=== PATIENT | male | born 1990 ===

== ENCOUNTER 2020-06-10 13:38 | Emergency (ER) | payer OTHER, SELFPAY ==
[2020-06-10 13:57] VITALS: BP 112/73; PULSE 74; RESP 16; TEMP 37.3; O2SAT 98; BMI 19.5
--- NOTE | 2020-06-10 14:53 | ED.PSYCH ---
HPI - Psych General Chief Complaint: Psychiatric Symptoms Stated Complaint: SI Time Seen by Provider: 06/10/20 14:11 Source: patient and family Mode of arrival: ambulatory Limitations: no limitations History of Present Illness HPI Narrative: 29 yo male with history of anxiety/depression, hx former alcohol abuse now sober x2 years who presents with severe depression and suicidal thoughts. His girlfriend of 6 years 6 weeks ago. [facility] found out [facility] that she had been cheating on him for the last 2 years. He started making suicidal thoughts to his family with severe sadness and depression. He has been angry at home, he punched a hole in the wall the other day. He lost 20 lbs in the last 6 weeks. He reports vague SI but has no plan. He admits to needing help. He has been on meds before but has been off of them for years. He has significant support at home. MD complaint: suicidal ideation and feels depressed Onset (ago): week(s) (6) Duration: constant History of same: Yes Relieving factors: none Exacerbating factors: none Context: significant life stressor Associated psychiatric symptoms: depression and suicidal ideation Associated symptoms: denies other symptoms Treatments prior to arrival: none If self harm: admits thoughts of self harm Related Data Allergies Allergy/AdvReac Type Severity Reaction Status Date / Time No Known Allergies Allergy Unverified 01/13/20 18:15 [No Known Allergies*] Review of Systems Review of Systems: Constitutional: No Fever, No Chills, +weight loss Cardiovascular: No Chest Pain, No SOB, No Orthopnea, No Edema Respiratory: No Cough, No Sputum, No Wheezing, No dyspnea Gastrointestinal: No Nausea, No Vomiting, No Diarrhea, No abdominal Pain Genitourinary: No Dysuria, No Urinary Frequency, No Hematuria Musculoskeletal: No joint pain, No Myalgias Skin: No Skin Lesions, No rash Neuro: No Weakness, No Numbness, No Dizziness, No Headache Psych: + Anxiety/Panic, + Depression, +anger PMFSH Social History Social History Advance Directives: No Advance Directives Information Provided: Yes Physical Exam Vital Signs: Vital Signs: Last Vital Signs Temp 99 F 06/10/20 18:00 Pulse 71 06/10/20 18:00 Resp 14 06/10/20 18:00 BP 122/78 06/10/20 18:00 Pulse Ox 100 06/10/20 18:00 Body Mass Index 19.5 Appearance: Alert. Oriented X3. No acute distress. Eyes: Pupils equal, round and reactive to light. ENT: Pharynx normal. Neck: Normal inspection. Neck supple. CVS: Normal heart rate and rhythm. Pulses normal. Respiratory: No respiratory distress. Breath sounds normal. Abdomen: Soft and nontender. +BS x4 Skin: Skin warm and dry. Normal skin color. Normal skin turgor. No rashes. Extremities: No lower extremity edema. Neuro: Oriented X 3. No motor deficit. No sensory deficit. Psych: flat affect, +SI, no delusions, no hallucinations Course Course Course Narrative: 29 y/o male presenting with vague SI - severely depressed with significant life stressors. He has a very supportive family who have been by his side 18/11, taking time off of work and supporting him. They brought him here after he texted them today for help. Lab workup is unremarkable. N to see. He would benefit from more intensive therapy and starting of medication. He has been having therapy once a week the last 5 weeks without improvement. Reevaluation(s) Reevaluation #1: N evaluated the patient and spoke with family. They are currently recommending 3-5 respite stay with med evaluation and group therapy. Patient and family are on board. [facility] in [facility]. COVID pending. Reevaluation #2: COVID is negative. Bed is available but case has not been fully presented to facility at [facility]. Plan will be for discharge home with his parents and present to Respite once fully accepted - [facility] or [facility] tomorrow. Stable for d/c with his father. MDM - Psych Lab Data Result diagrams: 06/10/20 15:12 06/10/20 15:12 Labs: Lab Results 06/10/20 06/10/20 06/10/20 Range/Units 15:12 15:12 15:12 WBC 6.1 (4.8-10.8) X10*3/uL RBC 5.02 (4.60-5.80) X10*6/uL Hgb 15.2 (14.0-18.0) g/dl Hct 43.9 (42-52) % MCV 87.5 (80-98) fL MCH 30.3 (27.0-33.0) pg MCHC 34.6 (31.0-36.0) g/dl RDW 12.0 (11.0-16.0) % Plt Count 196 (160-400) X10*3/uL MPV 9.7 (9.4-12.4) fL Immature Gran % (Auto) 0.2 (0.0-0.4) % Neut % (Auto) 55.0 (45-73) % Lymph % (Auto) 34.5 (20-40) % [place] % (Auto) 9.3 (2-11) % Eos % (Auto) 0.5 (0-4) % Baso % (Auto) 0.5 (0-2) % Lymph # (Auto) 2.1 (1.2-4.9) X10*3/uL [place] # (Auto) 0.6 (0.1-1.2) X10*3/uL Eos # (Auto) 0.0 (0.0-0.4) X10*3/uL Baso # (Auto) 0.0 (0.0-0.2) X10*3/uL Abs Immat Gran (auto) 0.01 (0.00-0.03) X10*3/uL Absolute Neuts (auto) 3.3 (2.0-8.3) X10*3/uL Absolute Nucleated RBC 0.000 (0.0-0.012) X10*3/uL Nucleated RBC % (auto) 0.0 (0.0-0.2) /100WBC Sodium 139 (135-145) mmol/L Potassium 4.5 (3.3-5.1) mmol/L Chloride 104 (96-108) mmol/L Carbon Dioxide 29 (22-29) mmol/L Anion Gap 11 L (12-20) BUN 10 (9-16) mg/dL Creatinine 0.77 (0.5-1.4) mg/dL Estim Creat Clear Calc 131.9 Estimated GFR > 60 Random Glucose 100 (60-115) mg/dL Calcium 9.5 (8.4-10.2) mg/dL Total Bilirubin 3.0 H (0.0-1.0) mg/dL Direct Bilirubin 0.5 (0.0-0.5) mg/dL AST 11 (5-37) U/L ALT 10 (0-40) U/L Alkaline Phosphatase 52 (39-117) U/L Total Protein 6.9 (6.5-8.0) g/dL Albumin 4.5 (3.5-5.0) g/dL Urine Color Urine Appearance Urine pH (5.0-8.0) Ur Specific [place] (1.005-1.025) Urine Protein (NEG-TRACE) MG/DL Urine Glucose (UA) (NEG) MG/DL Urine Ketones (NEG) MG/DL Urine Blood (NEG) Urine Nitrite (NEG) Ur Leukocyte Esterase (NEG) Urine Opiates Screen (Not Detect) Ur Barbiturates Screen (Not Detect) Ur Phencyclidine Scrn (Not Detect) Ur Amphetamines Screen (Not Detect) U Benzodiazepines Scrn (Not Detect) Urine Cocaine Screen (Not Detect) U Marijuana (THC) Screen (Not Detect) Ethyl Alcohol < 10 mg/dL COVID-19 (ROSE) (Negative) COVID-19 Clin Com 06/10/20 06/10/20 06/10/20 Range/Units 15:12 15:12 19:30 WBC (4.8-10.8) X10*3/uL RBC (4.60-5.80) X10*6/uL Hgb (14.0-18.0) g/dl Hct (42-52) % MCV (80-98) fL MCH (27.0-33.0) pg MCHC (31.0-36.0) g/dl RDW (11.0-16.0) % Plt Count (160-400) X10*3/uL MPV (9.4-12.4) fL Immature Gran % (Auto) (0.0-0.4) % Neut % (Auto) (45-73) % Lymph % (Auto) (20-40) % [place] % (Auto) (2-11) % Eos % (Auto) (0-4) % Baso % (Auto) (0-2) % Lymph # (Auto) (1.2-4.9) X10*3/uL [place] # (Auto) (0.1-1.2) X10*3/uL Eos # (Auto) (0.0-0.4) X10*3/uL Baso # (Auto) (0.0-0.2) X10*3/uL Abs Immat Gran (auto) (0.00-0.03) X10*3/uL Absolute Neuts (auto) (2.0-8.3) X10*3/uL Absolute Nucleated RBC (0.0-0.012) X10*3/uL Nucleated RBC % (auto) (0.0-0.2) /100WBC Sodium (135-145) mmol/L Potassium (3.3-5.1) mmol/L Chloride (96-108) mmol/L Carbon Dioxide (22-29) mmol/L Anion Gap (12-20) BUN (9-16) mg/dL Creatinine (0.5-1.4) mg/dL Estim Creat Clear Calc Estimated GFR Random Glucose (60-115) mg/dL Calcium (8.4-10.2) mg/dL Total Bilirubin (0.0-1.0) mg/dL Direct Bilirubin (0.0-0.5) mg/dL AST (5-37) U/L ALT (0-40) U/L Alkaline Phosphatase (39-117) U/L Total Protein (6.5-8.0) g/dL Albumin (3.5-5.0) g/dL Urine Color YELLOW Urine Appearance CLEAR Urine pH 8.0 (5.0-8.0) Ur Specific [place] 1.015 (1.005-1.025) Urine Protein NEG (NEG-TRACE) MG/DL Urine Glucose (UA) NEG (NEG) MG/DL Urine Ketones NEG (NEG) MG/DL Urine Blood NEG (NEG) Urine Nitrite NEG (NEG) Ur Leukocyte Esterase NEG (NEG) Urine Opiates Screen Not Detected (Not Detect) Ur Barbiturates Screen Not Detected (Not Detect) Ur Phencyclidine Scrn Not Detected (Not Detect) Ur Amphetamines Screen Not Detected (Not Detect) U Benzodiazepines Scrn Not Detected (Not Detect) Urine Cocaine Screen Not Detected (Not Detect) U Marijuana (THC) Screen POSITIVE H (Not Detect) Ethyl Alcohol mg/dL COVID-19 (ROSE) Negative (Negative) COVID-19 Clin Com See Note Discharge Plan Discharge Clinical Impression: Depression Patient Disposition: Xfer to Respite Facility Instructions: Depression (ED), Suicide Prevention (ED) Additional Instructions: Present to Respite Facility upon discharge for treatment. Stay with a responsible adult until you have been formally accepted at the Respite facility. Contact N or come back to the ER if you are feeling suicidal and out of control.
[2020-06-10] MEDS: LORazepam 1 MG TABLET 2 MG PO (15:07)
[2020-06-10 15:19] LABS: Basophils Percent Auto 0.5 % (0-2); Eosinophils Percent Auto 0.5 % (0-4); Hematocrit 43.9 % (42-52); Hemoglobin 15.2 g/dl (14.0-18.0); Imm Gran Abs Auto 0.01 X10*3/uL (0.00-0.03); Imm Gran Pct Auto 0.2 % (0.0-0.4); Lymphocytes Absolute Auto 2.1 X10*3/uL (1.2-4.9); Lymphocytes Percent Auto 34.5 % (20-40); MANUAL DIFF FLAG NO; Mean Corpuscular HGB Conc 34.6 g/dl (31.0-36.0); Mean Corpuscular Hemoglobin 30.3 pg (27.0-33.0); Mean Corpuscular Volume 87.5 fL (80-98); Mean Platelet Volume 9.7 fL (9.4-12.4); Monocytes Absolute Auto 0.6 X10*3/uL (0.1-1.2); Monocytes Percent Auto 9.3 % (2-11); Neutrophils Absolute Auto 3.3 X10*3/uL (2.0-8.3); Platelet Count 196 X10*3/uL (160-400); Red Blood Count 5.02 X10*6/uL (4.60-5.80); White Blood Count 6.1 X10*3/uL (4.8-10.8)
[2020-06-10 15:24] LABS: Glucose Urine UA NEG (NEG); Leukocyte Esterase Urine NEG (NEG); Nitrite Urine NEG (NEG); Specific Gravity - Urine 1.015 (1.005-1.025); Urine Blood NEG (NEG); Urine Ketones NEG (NEG); Urine Protein NEG (NEG-TRACE)
[2020-06-10 15:30] LABS: Appearance Urine CLEAR; Color Urine YELLOW
[2020-06-10 15:34] LABS: Ethanol < 10 mg/dL
[2020-06-10 15:37] LABS: Amphetamine Screen Urine Not Detected (Not Detect); Barbiturates, Urine Not Detected (Not Detect); Benzodiazepines Screen Urine Not Detected (Not Detect); Cannabinoid Screen Urine POSITIVE (Not Detect); Cocaine Screen Urine Not Detected (Not Detect); Opiate Screen Urine Not Detected (Not Detect); Phencyclidine Screen Urine Not Detected (Not Detect)
[2020-06-10 15:39] LABS: Alanine Aminotransferase 10 U/L (0-40); Albumin Level 4.5 g/dL (3.5-5.0); Alkaline Phosphatase 52 U/L (39-117); Anion Gap 11 (12-20); Aspartate Amino Transferase 11 U/L (5-37); Bilirubin Direct 0.5 mg/dL (0.0-0.5); Blood Urea Nitrogen 10 mg/dL (9-16); Calcium 9.5 mg/dL (8.4-10.2); Carbon Dioxide 29 mmol/L (22-29); Chloride 104 mmol/L (96-108); Creatinine Clr Calc Pharmacy 131.9; Estimated Glomerular Filt Rate > 60; Glucose Random 100 mg/dL (60-115); Potassium 4.5 mmol/L (3.3-5.1); Sodium 139 mmol/L (135-145); Total Protein 6.9 g/dL (6.5-8.0)
--- NOTE | 2020-06-10 16:20 | PC.NURSE ---
pt has been pacing in [facility]. HE was unwilling to state if he was having active suicidal thoughts or had a plan. He sttaes I don't want to say too much. Pt became agitated and wanting o leave, was seen by provider and medicated for SX. HE continues to pace and say he wants to leave. Awaiting further eval.
--- NOTE | 2020-06-10 17:31 | PC.NURSE ---
called N to confirm fax, they state they have gotten the fax but cannot determine when the pt will be seen. Will continue to monitor and update pt.
[2020-06-10 18:00] VITALS: BP 122/78; PULSE 71; RESP 14; TEMP 37.2; O2SAT 100
[2020-06-10 19:53] LABS: COVID-19 Test Negative (Negative)
== END 2020-06-10 20:27 ==
PROVIDERS: Physician Assistant; Emergency Provider Emergency Medicine Emergency Medical Services; PCP Internal Medicine
DX: F32.9 Major depressive disorder, single episode, unspecified (principal); R45.851 Suicidal ideations; Z20.822 Contact with and (suspected) exposure to COVID-19; Z72.89 Other problems related to lifestyle; Z63.4 Disappearance and death of family member
CPT/HCPCS: 36415; 80048; 80076; 80307; 80320; 81003; 85025; 87635; 99284

== ENCOUNTER 2020-07-03 10:30 | Outpatient (RCR) | payer OTHER, SELFPAY ==
[2020-06-20 13:14] VITALS: BMI 20.8
--- NOTE | 2020-06-20 14:21 | PC.NURSE ---
Patient is a 29 year old male who was referred by [facility] inpatient mental health unit where patient was admitted d/t increased depression with passive SI related to grief over his fiance' who patient reports of a suspected overdose on May 04, 2020. Patient stated he found out at the that his fiance' cheated on him with a drug dealer and was very upset after he found this out. Patient presents with depressed mood and affect. Denied SI, HI at present. Asked who he could contact if did not feel safe and he stated his sponsor or a family member. Patient stated he has a lot of family support. Patient gave verbal permission to email him a copy of his safety plan. Patient reports hx of substance use and that ETOH was his substance of choice. Patient reported heavy eTOH use drinking liters of vodka until he blacked out. Stated he has been sober for 2 years and has a sponsor. Patient has not been attending substance use meetings as he stated he does not like the online platform however stated he probably should start going again. He reports daily use of marijuana smoking a bowl daily to help with his anxiety and sleep. Patient agrees not to use while in the program. Patient medications reconciled with patient who reviewed [facility] D/C medication list with this engineering writer and per patient's pharmacy. Patient reports taking medications as prescribed. Patient also reports bruising on his hands d/t punching a hole in the wall while hospitalized at [facility]. Stated no swelling and is able to move all his fingers.
--- NOTE | 2020-06-20 18:39 | HO.PS.ADMBH ---
HPI Chief Complaint: depression Sources of Information: patient interviewed and chart reviewed HPI Narrative: 29 yo male, referred after an admission to [facility]. Pt reports that his jessica of a drug overdose on 05/04/20. Reports he learned at her that she had been in a relationship with her dealer. Pt experienced a 25lb wt loss, nightmares, dry heaves and pursued in pt care as sx were overwhelming. Reports two years of sobriety-states he worked hard, saved money for an apartment with jessica, purchased an [employer] ring, went to /[facility] and feels crushed by what has occurred. Reports no SI, stating I have no real will to live, but I don't wish on myself and I know the pain it causes those who love you. I will move forward with my life. Reports sleep is OK as it appetite. This week is also an anniversary of a friend dying of OD (06/21) and he has been giving this loss more thought. Reports extensive research on medications and currently does not want to complete trials. Discussed some of the newer agents available to him and he will accept information. Medical Evaluation Reviewed: No (no evaluation to review) [facility], LAT[facility] Medical History (Updated 06/20/20 @ 18:58 by Shannon Mcdowell, BROADCAST DESIGNER) Alcohol use disorder, moderate, in sustained remission, dependence No known health problems Recurrent major depression-severe Family History: depression, anxiety, addiction Social History: living with parents, currently no working Substance History: Sober for 2 years Trauma History: yes Diagnostics Vital Signs (24Hr): Body Mass Index 20.8 Meds/Allergies Meds Narrative: Klonopin 0.5 mg prn Clonidine 0.1 mg HS Allergies Allergies Allergy/AdvReac Type Severity Reaction Status Date / Time No Known Allergies Allergy Verified 06/20/20 13:13 [No Known Allergies*] Mental Status Exam Mental Status Exam Patient Appearance: Appropriate Patient Orientation: Person, Place, Time and Situation Level of Consciousness: Alert Patient Behavior: Appropriate, Talkative, Cooperative and Fatigued Mood Description: Depressed Affect Description: Flat Patient Cognition Impaired: No Ability to Follow Directions: Good Speech Pattern: Clear and Spontaneous Speech Memory Description: Intact Hallucinations: None Delusions: Not Present Thought Process: Intact, Rumination and Linear Thought Content: positive for Intact and positive for Circumstantial Depressive Symptoms: Hopelessness, Feelings of Guilt, Unhappiness, Thoughts of /Suicide (passive, without plan or intent- no will to live ) and Loss of Energy Judgement: Good Assessment & Plan Assessment & Plan (1) Acute stress reaction: Status: Acute Code(s): F43.0 - Acute stress reaction Assessment and Plan: -Continue current regime. -Wanting to process loss, however, without details- will ask group leaders for assistance. (2) Recurrent major depression-severe: Status: Acute Code(s): F33.2 - Major depressive disorder, recurrent severe without psychotic features Assessment and Plan: -Discussed medication options-pt is open to looking at information. (3) Alcohol use disorder, moderate, in sustained remission, dependence: Status: Acute Code(s): F10.21 - Alcohol dependence, in remission Certification I certify that partial hospital treatment is medically necessary due to the symptoms and problems resulting from the patient's mental illness and the failure to treat the patient at the partial hospital level of care would likely result in the patient requiring inpatient psychiatric care which could not be prevented at a less intensive level of care. Telehealth Telehealth Location of provider rendering services: practice address Location of patient: address on file Patient Identification confirmed using: Name, : Yes Telehealth method: video Patient verbally consented to treatment: Yes Patient verbally consented to billing insurance company: Yes Patient informed of any privacy concerns related to visit: Yes Time spent with patient (mins): 30
--- NOTE | 2020-06-22 08:31 | PC.NURSE ---
I called and LM for pt. I asked him to pls call re: aftercare and schedule.
--- NOTE | 2020-06-23 15:10 | PC.NURSE ---
I called and spoke to pt this morning about aftercare. He agreed to call med providers peter. I sent him a list via email, including the following providers: 1) Mirlande Padilla NP . [place], [place]. (Licensed to see clients in [facility], and she's close to [employer]) 2) Randell Zambrano MD . [place], [place] 3) Dionicio Whelan NP. . [place], [place] 4) Sejal Delgado APRN. . [place], [place] 5) [address] [facility]. . [place], [place] 6) Cierra Begum APRN [place], [place] 7) Ame Knutson NP (Nita) [place], [place] 8) Jesus Waters NP [place], [place] 9) Becca Najera NP [place], [place] 10) Ty Brooks NP x [place], [place] I also sent him an email with a link to the Men's [employer] online support group (for men who have lost someone to a drug OD, as he said he might be interested.
--- NOTE | 2020-06-28 16:43 | HO.PHPPROGNO ---
Subjective Subjective Date of Service: 07/17/20 Reason For Visit: depression Interim History: Manoj reports he finds PHP helpful in that he learns from peers. He reports continuing to have nightmares at night. He reports less symptoms of depression. He denies SI/HI. He is taking medications as prescribed and denies any side effects. We discussed starting antidepressant or considering prazosin for nightmares but pt declined. Medication Compliance: Yes Side effects from medications: No Mental Status Exam Mental Status Exam Patient Appearance: Appropriate Patient Orientation: Person, Place, Time and Situation Level of Consciousness: Alert Patient Behavior: Appropriate, Talkative, Cooperative and Fatigued Mood Description: Depressed Affect Description: Flat Patient Cognition Impaired: No Ability to Follow Directions: Good Speech Pattern: Clear and Spontaneous Speech Memory Description: Intact Diagnostics Vital Signs (24Hr): Body Mass Index 20.8 Assessment & Plan Assessment & Plan (1) Acute stress reaction: Status: Acute Code(s): F43.0 - Acute stress reaction Assessment and Plan: -Continue current regime. -Wanting to process loss, however, without details- will ask group leaders for assistance. (2) Recurrent major depression-severe: Status: Acute Code(s): F33.2 - Major depressive disorder, recurrent severe without psychotic features Assessment and Plan: -Discussed medication options-pt is open to looking at information. (3) Alcohol use disorder, moderate, in sustained remission, dependence: Status: Acute Code(s): F10.21 - Alcohol dependence, in remission Certification I certify that partial hospital treatment is medically necessary due to the symptoms and problems resulting from the patient's mental illness and the failure to treat the patient at the partial hospital level of care would likely result in the patient requiring inpatient psychiatric care which could not be prevented at a less intensive level of care. Greater than 50% of the session was spent on counseling and/or coordination of care Discharge Plan Discharge Attending provider: Moreno Lantigua Medications: No Action clonidine HCl 0.1 mg Tablet 0.1 mg PO BID PRN (Reason: Anxiety) RF: 0 clonazepam [Klonopin] 0.5 mg Tablet 0.5 mg PO BID PRN (Reason: Anxiety) RF: 0 Telehealth Telehealth Location of provider rendering services: practice address Location of patient: address on file Patient Identification confirmed using: Name, : Yes Telehealth method: video Patient verbally consented to treatment: Yes Patient verbally consented to billing insurance company: Yes Patient informed of any privacy concerns related to visit: Yes Time spent with patient (mins): 15
--- NOTE | 2020-06-29 14:53 | PC.NURSE ---
I attempted to call pt after he didn't sow up for the last 2 groups. He (or someone) picked up and immediately hung up before I said anything. After talking with staff, I was informed that he had left a massage on the general voicemail box.
--- NOTE | 2020-06-30 14:01 | PC.NURSE ---
I called and spoke to pt after he displayed hopelessness in several groups today. He said he feels safe now. He reported urges to drink alcohol but sounded confident that he wont. He spoke about knowing that the steps he is taking now will even something to him in the future even if he doesn't feel like he cares now. He said he will contact crisis is he becomes suicidal, and said he'd call a friend or sponsor if he feels close to alcohol use.
--- NOTE | 2020-07-04 10:55 | PC.NURSE ---
Pt left during first group, and I called him and spoke with him. He said he is safe, and that he needs a break from talking . When I asked, he said he doesn't plan to drink alcohol, and is not having suicidal thoughts or plans.
--- NOTE | 2020-07-05 10:19 | PC.NURSE ---
Clinician reported pt was struggling in group. Pt called to talk about what was going on. When asked if he had a plan to hurt himself he reported I don't want to say anything to take away my freedom. Discussed options of seeing crisis and recommended a crisis assessment from EYELET MACHINE OPERATOR at [facility] in [place]. He agreed. Called his father (emergency contact) to ask him to take pt to [facility]. Father agreed. Called pt back to inform him that his father was on his way home to take him to a crisis assessment. Pt reported he took 1 klonopine and he is aware his father is coming to pick him up. Pt agreed to be put on alert with EYELET MACHINE OPERATOR crisis. Called EYELET MACHINE OPERATOR crisis to put pt on alert.
--- NOTE | 2020-07-05 11:45 | PC.NURSE ---
TW was asked by hull outfit supervisor to reassess a crisis situation as she had received a call from pt's father that pt no longer wanted to go to be evaluated and that pt ws denying any SI. TW asked pt if he ws safe pt said yes. Pt reported that he had no intention of hurting himsef. It reported that his parents were with him and that he was not alone. Pt wanted to rejoin groups. TW provided the link to rejoin. Pt asked what time to log in, pt was told now as group had started. Pt agreed. Pt reported that he would reach out to staff should he no longer feel safe.
--- NOTE | 2020-07-05 12:09 | PC.NURSE ---
Clinician reported pt did not attend group as agreed upon. Called pt and left a message. Called pt's father (emergency contact) to discuss concerns. Pt reported to father that he tried to log in but no one let him in. Asked if pt attempted to call anyone. He said no. Discussed the requirement of a crisis assessment due to safety concerns, not following through with returning to treatment, and not reaching out if there was an issue. Pt left the room. Informed pt's father that pt could obtain a mobile assessment by calling [facility] crisis (provided the number), by going to [facility] to see HOME CARE LIAISON crisis or we may have to section 12 him due to safety concerns. Pt's mother (in the background) reported that she made an appointment with an HAULING CONTRACTOR at his PCP office for 1615 today. However, discussed safety concerns regarding pts behaviors and the need for a crisis assessment as well. Father entered the same room as pt and reiterated the need for a crisis assessment. Pt agreed to [facility] mobile crisis. Father and pt were going to call upon hanging up.
--- NOTE | 2020-07-06 08:10 | PC.NURSE ---
Tw called pt to check the status of yesterdays events. Pt did not answer phone. Message was left looking for an update on the crisis evaluation, as pt's clinician is out today and no update was provided to the Engineering Vice President. Pt was asked to return the call. Engineering Vice President's number also provided.
--- NOTE | 2020-07-07 16:06 | PC.NURSE ---
I called and spoke to Subhash Munson, pt's therapist, ([phone]) and let him know that pt has discharged from the program, and is struggling. I gave a clinical update and informed him about referral for pt to [facility] and to Randell Zambrano MD for medication management.
== END 2020-07-03 23:55 | disposition left against medical advice (07) ==
LOC: HO.PHPA 10:30
PROVIDERS: Referring Provider Internal Medicine; Visit Provider Psychiatry & Neurology Psychiatry
DX: F33.2 Major depressive disorder, recurrent severe without psychotic features (principal); F43.0 Acute stress reaction; F10.21 Alcohol dependence, in remission
CPT/HCPCS: 90791; 90853

== ENCOUNTER 2023-08-08 12:51 | Inpatient (IN) | payer OTHER, SELFPAY ==
[2023-08-08 12:55] VITALS: BP 125/76; PULSE 75; RESP 18; TEMP 37.1; O2SAT 98; BMI 26.1
--- NOTE | 2023-08-08 12:55 | ED_ITS ---
HPI - Psych General Chief Complaint: Psychiatric Symptoms Stated Complaint: Crisis Time Seen by Provider: 08/08/23 13:02 Source: patient Mode of arrival: ambulatory Limitations: no limitations History of Present Illness HPI Narrative: Patient is a 32-year-old male who presents to the emergency department reporting SI without specific plan, severe depression and anxiety, states his psychiatrist told him there will be beds opening up this afternoon here , states recent hospitalization in [facility] after suicide attempt in June 21. Denies drug or alcohol usage, denies physical complaints at this time Related Data Home Medications ?Medication ?Instructions ?Recorded ?Confirmed clonazepam 0.5 mg tablet (Klonopin) 1 mg PO TID PRN Anxiety 06/20/20 08/08/23 olanzapine 10 mg tablet (Zyprexa) 10 mg PO BID 08/08/23 08/08/23 Allergies Allergy/AdvReac Type Severity Reaction Status Date / Time No Known Allergies Allergy Verified 08/08/23 13:03 [No Known Allergies*] Review of Systems 2 Review of Systems: Yes all other systems are reviewed and are negative [facility] Past Medical History Attestation statement: The following information was validated with the patient. Source: old records reviewed Medical History Alcohol use disorder, moderate, in sustained remission, dependence Recurrent major depression-severe No known health problems Social History Social History Household Members: Family Alcohol intake: never Smoked in Last 30 Days: Yes Use of substances other than those prescribed or required for medical reasons: Yes Substance Use Type: Marijuana Substance Use Type Other:: Reports vaping THC Substance Use Frequency: Daily Last Used Substance: Days (ago) Any prior treatment program specific to substance use: No Advance Directives: No Physical Exam 2 Vital Signs: Vital Signs: Last Vital Signs Temp 98.7 F 08/08/23 12:55 Pulse 75 08/08/23 12:55 Resp 18 08/08/23 14:09 BP 125/76 08/08/23 12:55 Pulse Ox 98 08/08/23 12:55 O2 Del Method Room Air 08/08/23 14:09 BMI result Body Mass Index 26.1 Appearance: Alert.?Oriented to person, place and time. No acute distress.?Normal affect. Eyes: Pupils equal, round and reactive to light.? ENT: Pharynx normal.?? Neck: Normal inspection.? Neck supple.?? CVS: Heart sounds normal. Normal heart rate and rhythm.? Pulses normal.?? Respiratory: No respiratory distress.? Lung sounds clear to auscultation bilaterally?? Abdomen: Soft and non-tender. Normoactive bowel sounds. ? Skin: Skin warm and dry.? Normal skin color.? Extremities: No lower extremity edema.? No calf ttp? Neuro: Moves all extremities spontaneously. Sensation intact bilaterally. CN II- XII intact. No focal neuro deficits. Ambulates with normal steady gait. Medications Administered Discontinued Medications Generic Name Dose Route Start Last Admin Trade Name Freq PRN Reason Stop Dose Admin Lorazepam 2 mg 08/08/23 13:45 08/08/23 13:51 Lorazepam 1 Mg Tablet PO 08/08/23 13:46 2 mg ONCE ONE Administration Medical Decision Making Medical Decision Making [facility] Narrative: Patient is a 32 year old male past medical history of alcohol use disorder, major depression presenting to emergency department for evaluation of suicidal ideations without a specific plan, denying any homicidal ideations. Reports last alcohol consumption approximately 2 months ago. He is overall well- appearing, calm and cooperative with staff. His physical examination is benign. Plan to obtain labs for medical clearance and refer to CARE team for disposition planning, to determine whether inpatient level of care required at this time. Differential Diagnosis Differential Diagnoses: The differential diagnosis associated with the presentation includes (Suicidal ideations aggression, anxiety) Admission/Observation Consideration of admission/observation: Escalation of care including admission/observation considered Physician observation 1709 - vital stable. No distress. Placed in observation so that inpatient bed search can ensue, currently on a section 12. Consult Healthcare Provider Management of the patient was discussed with: Behavioral Health Provider Lab Data [facility] Lab Attestation statement: I reviewed the patient's lab results. CBC is without leukocytosis or anemia. CMP overall unremarkable. Urinalysis without evidence of infection. Toxicology testing positive for marijuana. 08/08/23 13:41 08/08/23 13:41 Labs: Lab Results 08/08/23 08/08/23 08/08/23 Range/Units 13:28 13:41 16:07 WBC 6.0 (4.8-10.8) X10*3/uL RBC 5.24 (4.60-5.80) X10*6/uL Hgb 15.6 (14.0-18.0) g/dl Hct 44.7 (42.0-52.0) % MCV 85.3 (80.0-98.0) fL MCH 29.8 (27.0-33.0) pg MCHC 34.9 (31.0-36.0) g/dl RDW 12.1 (11.0-16.0) % Plt Count 250 (160-400) X10*3/uL MPV 9.0 L (9.4-12.4) fL Immature Gran % (Auto) 0.7 H (0.0-0.4) % Neut % (Auto) 47.4 (45-73) % Lymph % (Auto) 40.9 H (20-40) % [place] % (Auto) 9.5 (2-11) % Eos % (Auto) 0.8 (0-4) % Baso % (Auto) 0.7 (0-2) % Lymph # (Auto) 2.4 (1.2-4.9) X10*3/uL [place] # (Auto) 0.6 (0.1-1.2) X10*3/uL Eos # (Auto) 0.1 (0.0-0.4) X10*3/uL Baso # (Auto) 0.0 (0.0-0.2) X10*3/uL Abs Immat Gran (auto) 0.04 H (0.00-0.03) X10*3/uL Absolute Neuts (auto) 2.8 (2.0-8.3) x10*3/uL Absolute Nucleated RBC 0.000 (0.0-0.012) X10*3/uL Nucleated RBC % (auto) 0.0 (0.0-0.2) /100WBC Sodium 141 (135-145) mmol/L Potassium 4.4 (3.3-5.1) mmol/L Chloride 107 (96-108) mmol/L Carbon Dioxide 28 (22-29) mmol/L Anion Gap 10 L (12-20) BUN 17 H (9-16) mg/dL Creatinine 0.81 (0.5-1.4) mg/dL Estim Creat Clear Calc 145.2 Estimated GFR > 60 Random Glucose 101 (60-115) mg/dL Calcium 9.6 (8.4-10.2) mg/dL Total Bilirubin 1.2 H (0.0-1.0) mg/dL AST 11 (5-37) U/L ALT 14 (0-40) U/L Alkaline Phosphatase 52 (39-117) U/L Total Protein 7.6 (6.5-8.0) g/dL Albumin 4.6 (3.5-5.0) g/dL Urine Color Dark Yellow Urine Appearance Turbid Urine pH 8.0 (5.0-9.0) Ur Specific [place] >= 1.030 H (1.005-1.025) Urine Protein Negative (Neg-Trace) mg/dL Urine Glucose (UA) Negative (Negative) mg/dL Urine Ketones Trace (Negative) mg/dL Urine Blood Negative (Negative) Urine Nitrite Negative (Negative) Ur Leukocyte Esterase Trace H (Negative) Urine RBC 0-2 (0-2) /HPF Urine WBC 0-5 (0-5) /HPF Ur Squamous Epith Cells 0-2 (0-2) /HPF Urine Bacteria None Seen (None Seen) Hyaline Casts 0-2 (0-2) /LPF Urine Opiates Screen Not Detected (Not Detect) Urine Fentanyl Screen Not Detected (Not Detect) Ur Barbiturates Screen Not Detected (Not Detect) Ur Phencyclidine Scrn Not Detected (Not Detect) Ur Amphetamines Screen Not Detected (Not Detect) U Benzodiazepines Scrn Not Detected (Not Detect) Urine Cocaine Screen Not Detected (Not Detect) U Marijuana (THC) Screen POSITIVE H (Not Detect) Ethyl Alcohol < 10 mg/dL COVID-19 (ROSE) Negative (Negative) COVID-19 Clin Com See Note External Record Review External record reviewed: Inpatient record Discharge Plan Discharge Clinical Impression: Suicidal ideation Patient Disposition: Still a Patient Prescriptions: No Action clonazepam [Klonopin] 0.5 mg Tablet 1 mg PO TID PRN (Reason: Anxiety) olanzapine [Zyprexa] 10 mg Tablet 10 mg PO BID Interventions: [place]-Suicide Risk Severity Scale Last Done: 08/08/23 14:13 Print Language: Polish
--- NOTE | 2023-08-08 13:09 | MHC.CARE ---
Rcahell Castaneda psychiatrist @ [facility] called with an expect, patient Manoj Zambrano (86) reports he has been at [facility] in the past. He was in her office for appt today and reports increased anxiety and suicidal thoughts stating ?I don?t feel safe?. She reports patient has history of ADHD, Major Depressive Disorder and ETOH use in remission but relapsed one month ago. Patient has history of prior suicide attempt via overdoes one month ago and went to [facility], was admitted IPL at [facility]. Patient has been receiving TMS daily at [facility] as he did not respond well to antidepressants. ?She reports current medications are ?not holding him?, he currently has relationship issues with the mother of his daughter which has increased his anxiety as patient shares custody of daughter. ?Patient has been on Olanzapine and Lorazepam in the past. He was prescribed Ativan recently and it is not holding him, patient will be presenting from [place] as patients father reported they did not feel they got good care from [facility] and [facility] in the past and current prescriber recommended [facility]. ?Dr. Simeon Castaneda (psychiatrists) reports she can be contacted for collateral information on [employer], via cell phone [phone] or office phone [phone]. Patient attended [facility] PHP program on 06/20/20 -07/03/20 PHP Initial assessment with collateral information in [employer].
[2023-08-08 13:40] LABS: Appearance Urine Turbid; Color Urine Dark Yellow; Glucose Urine UA Negative (Negative); Leukocyte Esterase Urine Trace (Negative); Nitrite Urine Negative (Negative); Specific Gravity - Urine >= 1.030 (1.005-1.025); UMIC TRIGGER UACC YES; Urine Blood Negative (Negative); Urine Ketones Trace mg/dL (Negative); Urine Protein Negative (Neg-Trace)
[2023-08-08 13:45] LABS: Amphetamine Screen Urine Not Detected (Not Detect); Bacteria Urine None Seen (None Seen); Barbiturates, Urine Not Detected (Not Detect); Benzodiazepines Screen Urine Not Detected (Not Detect); Cannabinoid Screen Urine POSITIVE (Not Detect); Cocaine Screen Urine Not Detected (Not Detect); Fentanyl, urine Not Detected (Not Detect); Hyaline Casts Urine 0-2 /LPF (0-2); Opiate Screen Urine Not Detected (Not Detect); Phencyclidine Screen Urine Not Detected (Not Detect); RBC Urine 0-2 /HPF (0-2); Squamous Epithelial Cell Urine 0-2 /HPF (0-2); WBC Urine 0-5 /HPF (0-5)
[2023-08-08 13:47] LABS: MANUAL DIFF FLAG NO
[2023-08-08] MEDS: LORazepam 1 MG TABLET 2 MG PO (13:51)
[2023-08-08 13:52] LABS: Basophils Percent Auto 0.7 % (0-2); Eosinophils Absolute Auto 0.1 X10*3/uL (0.0-0.4); Eosinophils Percent Auto 0.8 % (0-4); Hematocrit 44.7 % (42.0-52.0); Hemoglobin 15.6 g/dl (14.0-18.0); Imm Gran Abs Auto 0.04 X10*3/uL (0.00-0.03); Imm Gran Pct Auto 0.7 % (0.0-0.4); Lymphocytes Absolute Auto 2.4 X10*3/uL (1.2-4.9); Lymphocytes Percent Auto 40.9 % (20-40); Mean Corpuscular HGB Conc 34.9 g/dl (31.0-36.0); Mean Corpuscular Hemoglobin 29.8 pg (27.0-33.0); Mean Corpuscular Volume 85.3 fL (80.0-98.0); Monocytes Absolute Auto 0.6 X10*3/uL (0.1-1.2); Monocytes Percent Auto 9.5 % (2-11); Neutrophils Absolute Auto 2.8 x10*3/uL (2.0-8.3); Neutrophils Percent Auto 47.4 % (45-73); Platelet Count 250 X10*3/uL (160-400); Red Blood Count 5.24 X10*6/uL (4.60-5.80); Red Cell Distribution Width 12.1 % (11.0-16.0)
[2023-08-08 14:05] LABS: Alanine Aminotransferase 14 U/L (0-40); Albumin Level 4.6 g/dL (3.5-5.0); Alkaline Phosphatase 52 U/L (39-117); Anion Gap 10 (12-20); Aspartate Amino Transferase 11 U/L (5-37); Bilirubin Total 1.2 mg/dL (0.0-1.0); Blood Urea Nitrogen 17 mg/dL (9-16); Calcium 9.6 mg/dL (8.4-10.2); Carbon Dioxide 28 mmol/L (22-29); Chloride 107 mmol/L (96-108); Creatinine Clr Calc Pharmacy 145.2; Estimated Glomerular Filt Rate > 60; Ethanol < 10 mg/dL; Glucose Random 101 mg/dL (60-115); Potassium 4.4 mmol/L (3.3-5.1); Sodium 141 mmol/L (135-145); Total Protein 7.6 g/dL (6.5-8.0)
[2023-08-08 14:09] VITALS: RESP 18
--- NOTE | 2023-08-08 15:07 | MHC.CARE ---
Patient is willing to come in for IPLOC-parts data writer spoke with community-based psychiatrist Rachell Castaneda who recommends Section 12a in case patient changes her mind, Section 12a completed and put in patient's chart.
[2023-08-08 16:42] LABS: COVID-19 Test Negative (Negative); IDNOW Serial# 152EDE1D
[2023-08-08] MEDS: LORazepam 1 MG TABLET PO (17:37)
--- NOTE | 2023-08-08 19:02 | PC.NURSE ---
patient appears to be in no distress, mildly pacing in pod and using phone intermittently requesting nicotine gum will monitor for safety
[2023-08-08] MEDS: Nicotine Polacrilex 2 MG GUM BUCCAL (19:11)
[2023-08-08 20:18] VITALS: BP 121/68; PULSE 79; RESP 16; TEMP 36.7; O2SAT 97; BMI 26.3
[2023-08-08] MEDS: Nicotine Polacrilex 2 MG GUM 4 MG BUCCAL (20:43)
[2023-08-08] MEDS: clonazePAM 1 MG TABLET PO (22:12)
[2023-08-08] MEDS: OLANZapine 10 MG TABLET PO (22:25)
--- NOTE | 2023-08-08 22:41 | PC.ADMIT ---
Manoj has been admitted from the POD on a CV for depression and suicidal ideation. patient is alert and oriented X's 4 pleasant and cooperative and stated that he has not tried to hurt himself but has been having some really dark thoughts. he stated that he tried to cut his wrists before and when he was in [place] several months ago he was restrained for tieing a sheet around his neck in a hanging attempt. Manoj stated that he broke up with his fiance recently and that she said some really horrible things to me when I came to the hospital. He denies current suicidal ideation. He denies homicidal ideation as well as auditory/visual hallucinations he endorses depression and anxiety but states that it is mainly situational. skin check completed, all admission documentation completed, all consents signed. treatment plan initiated, patient oriented to the unit. monitor for safety
[2023-08-09 08:23] LABS: Estimated Average Glucose 108 mg/dL; Hemoglobin A1c % 5.4 % (<6.0)
[2023-08-09 08:25] VITALS: BP 128/74; PULSE 73; RESP 16; TEMP 36.5; O2SAT 99
[2023-08-09 08:32] LABS: Alanine Aminotransferase 14 U/L (0-40); Albumin Level 4.1 g/dL (3.5-5.0); Alkaline Phosphatase 52 U/L (39-117); Anion Gap 10 (12-20); Aspartate Amino Transferase 11 U/L (5-37); Blood Urea Nitrogen 18 mg/dL (9-16); Calcium 9.7 mg/dL (8.4-10.2); Carbon Dioxide 30 mmol/L (22-29); Chloride 104 mmol/L (96-108); Cholesterol 197 mg/dL (<200); Creatinine Clr Calc Pharmacy 145.2; Estimated Glomerular Filt Rate > 60; Glucose Fasting 110 mg/dL (60-99); HDL Cholesterol 40 mg/dL (>40); LDL Cholesterol Calculated 135 mg/dL (<100); Potassium 4.4 mmol/L (3.3-5.1); Sodium 140 mmol/L (135-145); Total Protein 6.9 g/dL (6.5-8.0); Triglycerides 111 mg/dL (<150)
[2023-08-09] MEDS: clonazePAM 1 MG TABLET PO ×3 (09:52→20:27)
[2023-08-09] MEDS: OLANZapine 10 MG TABLET PO ×2 (09:52→20:27)
[2023-08-09] MEDS: Nicotine 21 MG PATCH.TD24 TRANSDERMA (10:54)
--- NOTE | 2023-08-09 11:20 | P.HPPS_ITS ---
HPI Date of Service: 08/09/23 Chief Complaint: depression Sources of Information: patient interviewed, chart reviewed and crisis/core team assessment reviewed HPI Subjective Notes: Conditional Voluntary Medical Problems Affecting Mental Status: No Narrative: 32-year-old male admitted after meeting with psychiatrist, Dr. Rachell Castaneda while undergoing TMS treatment. advise to have inpatient level of care due to significant anxiety, poor sleep, feeling overwhelmed and unsafe. This was in the context of responding well to TMS having had 24/36 sessions. In the context of doing well, Strattera was started to treat ADD as patient was feeling more able to do things. Strattera started 10 days ago and subsequently had increased panic, poor sleep, overwhelmed, feeling unsafe. Reports he has tried stimulants in the past but does not like how he feels on them. Initially Ativan tried for anxiety and panic, this was switched to Klonopin. Also of note was admitted psychiatrically in May of 2023 and clonidine was helpful. This was in the context of suicide attempt of cutting his wrists, which was aborted as he left a note and 911 was called while he was trying to do this. Also tied a sheet around his neck at [facility]. This was following the break-up of a 2 year relationship. They also have a [id number] daughter, called Leilani and split custody. Living with parents in [place]. 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 No substance issues. No history of nicola or psychosis. Has seasonal affective disorder and MDD Past Psychiatric History: MDD and seasonal affective disorder. Multiple medication trials in the past such as SSRIs, Wellbutrin, Effexor, ketamine etc. Has a therapist for the [address] Rachell Castaneda undergoing TMS treatment- responding well having had 24/36 sessions. In the context of doing well, Strattera was started to treat ADD as patient was feeling more able to do things. Strattera started 10 days ago and subsequently had increased panic, poor sleep, overwhelmed, feeling unsafe. Also of note was admitted psychiatrically in May of 2023 and clonidine was helpful. This was in the context of suicide attempt of cutting his wrists, which was aborted as he left a note and 911 was called while he was trying to do this. Also tied a sheet around his neck at [facility]. This was following the break-up of a 2 year relationship. One other suicide attempt in college when he cut himself, and he describes this as a half-hearted attempt. Medical Evaluation Reviewed: Yes [facility] Medical History Alcohol use disorder, moderate, in sustained remission, dependence Recurrent major depression-severe No known health problems Family History: depression, anxiety, addiction Social History: living with parents, currently no working (was working as switchboard operator receptionist at [employer]), [email or web address]. 2 year relationship ended in May 2023. [id number] daughter. Split custody. Substance History: none Trauma History: yes Diagnostics Vital Signs (24Hr): Vital Signs - 24 hr 08/08/23 12:55 08/08/23 14:09 08/08/23 20:18 Temperature 98.7 F 98.0 F Pulse Rate 75 79 Respiratory Rate 18 18 16 Blood Pressure 125/76 121/68 Pulse Oximetry 98 97 Oxygen Delivery Method Room Air Room Air Room Air 08/09/23 08:25 Temperature 97.7 F Pulse Rate 73 Respiratory Rate 16 Blood Pressure 128/74 Pulse Oximetry 99 Oxygen Delivery Method Room Air BMI result Body Mass Index 26.3 Labs 08/08/23 13:41 08/09/23 07:50 Labs: Laboratory Results - last 48 hr 08/08/23 08/08/23 08/08/23 13:28 13:41 16:07 WBC 6.0 RBC 5.24 Hgb 15.6 Hct 44.7 MCV 85.3 MCH 29.8 MCHC 34.9 RDW 12.1 Plt Count 250 MPV 9.0 L Immature Gran % (Auto) 0.7 H Neut % (Auto) 47.4 Lymph % (Auto) 40.9 H [place] % (Auto) 9.5 Eos % (Auto) 0.8 Baso % (Auto) 0.7 Lymph # (Auto) 2.4 [place] # (Auto) 0.6 Eos # (Auto) 0.1 Baso # (Auto) 0.0 Abs Immat Gran (auto) 0.04 H Absolute Neuts (auto) 2.8 Absolute Nucleated RBC 0.000 Nucleated RBC % (auto) 0.0 Sodium 141 Potassium 4.4 Chloride 107 Carbon Dioxide 28 Anion Gap 10 L BUN 17 H Creatinine 0.81 Estim Creat Clear Calc 145.2 Estimated GFR > 60 Random Glucose 101 Fasting Glucose Estimat Average Glucose Hemoglobin A1c % Calcium 9.6 Total Bilirubin 1.2 H AST 11 ALT 14 Alkaline Phosphatase 52 Total Protein 7.6 Albumin 4.6 Triglycerides Cholesterol LDL Cholesterol, Calc HDL Cholesterol Urine Color Dark Yellow Urine Appearance Turbid Urine pH 8.0 Ur Specific [place] >= 1.030 H Urine Protein Negative Urine Glucose (UA) Negative Urine Ketones Trace Urine Blood Negative Urine Nitrite Negative Ur Leukocyte Esterase Trace H Urine RBC 0-2 Urine WBC 0-5 Ur Squamous Epith Cells 0-2 Urine Bacteria None Seen Hyaline Casts 0-2 Urine Opiates Screen Not Detected Urine Fentanyl Screen Not Detected Ur Barbiturates Screen Not Detected Ur Phencyclidine Scrn Not Detected Ur Amphetamines Screen Not Detected U Benzodiazepines Scrn Not Detected Urine Cocaine Screen Not Detected U Marijuana (THC) Screen POSITIVE H Ethyl Alcohol < 10 COVID-19 (ROSE) Negative COVID-19 Flexis Com See Note 08/09/23 07:50 WBC RBC Hgb Hct MCV MCH MCHC RDW Plt Count MPV Immature Gran % (Auto) Neut % (Auto) Lymph % (Auto) [place] % (Auto) Eos % (Auto) Baso % (Auto) Lymph # (Auto) [place] # (Auto) Eos # (Auto) Baso # (Auto) Abs Immat Gran (auto) Absolute Neuts (auto) Absolute Nucleated RBC Nucleated RBC % (auto) Sodium 140 Potassium 4.4 Chloride 104 Carbon Dioxide 30 H Anion Gap 10 L BUN 18 H Creatinine 0.81 Estim Creat Clear Calc 145.2 Estimated GFR > 60 Random Glucose Fasting Glucose 110 H Estimat Average Glucose 108 Hemoglobin A1c % 5.4 Calcium 9.7 Total Bilirubin 2.0 H AST 11 ALT 14 Alkaline Phosphatase 52 Total Protein 6.9 Albumin 4.1 Triglycerides 111 Cholesterol 197 LDL Cholesterol, Calc 135 H HDL Cholesterol 40 L Urine Color Urine Appearance Urine pH Ur Specific [place] Urine Protein Urine Glucose (UA) Urine Ketones Urine Blood Urine Nitrite Ur Leukocyte Esterase Urine RBC Urine WBC Ur Squamous Epith Cells Urine Bacteria Hyaline Casts Urine Opiates Screen Urine Fentanyl Screen Ur Barbiturates Screen Ur Phencyclidine Scrn Ur Amphetamines Screen U Benzodiazepines Scrn Urine Cocaine Screen U Marijuana (THC) Screen Ethyl Alcohol COVID-19 (ROSE) COVID-19 Clin Com Meds/Allergies Meds Home Medications ?Medication ?Instructions ?Recorded ?Confirmed ?Type clonazepam 0.5 mg tablet (Klonopin) 1 mg PO TID PRN Anxiety 06/20/20 08/08/23 History olanzapine 10 mg tablet (Zyprexa) 10 mg PO BID 08/08/23 08/08/23 History Allergies Allergies Allergy/AdvReac Type Severity Reaction Status Date / Time No Known Allergies Allergy Verified 08/08/23 13:03 [No Known Allergies*] Mental Status Exam Mental Status Exam Narrative: Pleasant. Engaged. Casually dressed and presented. Fair self-care. Is depressed. Anxious Some hopelessness. No active SI. No HI. No agitation or psychosis. Insight and judgment fair Assessment & Plan Assessment & Plan (1) Recurrent major depression-severe: Status: Acute Code(s): F33.2 - Major depressive disorder, recurrent severe without psychotic features (2) Anxiety: Status: Acute Code(s): F41.9 - Anxiety disorder, unspecified Plan 32-year-old male, established history of major depressive disorder, undergoing TM S treatment, recently started Strattera and subsequently developed panic, decreased sleep, feeling overwhelmed and unsafe. Some benefit from Klonopin. No substance use concerns. Does have a history of suicide attempts. Overall will continue Klonopin 1 mg 3 times per day and add 0.5 mg as needed twice daily. Will also have clonidine available, but has felt tired with this in the past, but agrees that might be helpful while in the hospital setting and while Strattera gets out of his system. Otherwise when stabilizes and safe, likely discharge to follow-up with already established TMS, psychiatrist and therapist. Patient educated on: diagnosis and medication risk/benefits Reason for continued inpatient stay Substantial Risk for: harm to self Statement Statement: I have reviewed the history and physical and performed a pertinent examination on my patient. No changes have occurred unless specified. If the History and Physical was not performed prior to admission, the Hospitalist's service will be consulted for completing the admission physical. Time Spent With Patient Time: Total time managing care of this patient today ____ minutes.
[2023-08-09] MEDS: Nicotine Polacrilex 2 MG GUM 4 MG BUCCAL ×2 (12:25→16:33)
[2023-08-09] MEDS: clonazePAM 0.5 MG TABLET PO ×2 (16:53→21:36)
[2023-08-09 18:40] VITALS: BP 131/69; PULSE 88
[2023-08-09] MEDS: cloNIDine HCL 0.1 MG TABLET PO ×2 (18:43→23:34)
[2023-08-09 20:07] VITALS: BP 121/74; PULSE 98; RESP 16; TEMP 37; O2SAT 97
[2023-08-10 06:00] VITALS: BP 99/61; PULSE 86; RESP 16; TEMP 36.7; O2SAT 100
[2023-08-10] MEDS: OLANZapine 10 MG TABLET PO ×2 (09:13→20:39)
[2023-08-10] MEDS: clonazePAM 1 MG TABLET PO ×3 (09:13→20:39)
[2023-08-10] MEDS: Nicotine 21 MG PATCH.TD24 TRANSDERMA (11:16)
--- NOTE | 2023-08-10 11:41 | HO.PSYCHPN ---
Subjective Subjective Date of Service: 08/10/23 Reason For Visit: depression Interim History: Met with patient. Discussed with Nursing. Overall reports feeling more depressed today. Has been spending time in his room. That being said his hopeful that Strattera was the main reason why he felt so anxious, overwhelmed, depressed and unsafe. Reports those feelings were at their most on and maybe Friday and are hopefully getting less. Current medication regimen is helpful. Utilizing clonidine at times, but also reports feeling physically heavier when he utilizes this and therefore will not use that outside of the hospital. Reports that he hopes team will speak with his outpatient psychiatrist Dr. Rachell Castaneda around ADD treatments as they were initially going to start a stimulants ie Ritalin which was very helpful for him during college years, but patient preferred to try Strattera 1st. Given outcome, hopeful he can start Ritalin. Medication Compliance: Yes Side effects from medications: No Attending Groups: Intermittent Review of Systems Acute medical concerns: No Review of Systems Review of Systems Yes all other systems are reviewed and are negative Mental Status Exam Mental Status Exam Narrative: Pleasant. Engaged. Casually dressed and presented. Fair self-care. Depressed. Less anxious Some hopelessness. No active SI. No HI. No agitation or psychosis. Insight and judgment fair Diagnostics Vital Signs (24Hr): Vital Signs - 24 hr 08/09/23 18:40 08/09/23 20:07 08/10/23 06:00 Temperature 98.6 F 98.1 F Pulse Rate 88 98 86 Respiratory Rate 16 16 Blood Pressure 131/69 121/74 99/61 Pulse Oximetry 97 100 Oxygen Delivery Method Room Air Room Air BMI result Body Mass Index 26.3 Labs 08/08/23 13:41 08/09/23 07:50 Labs: Laboratory Results - last 48 hr 08/08/23 08/08/23 08/08/23 13:28 13:41 16:07 WBC 6.0 RBC 5.24 Hgb 15.6 Hct 44.7 MCV 85.3 MCH 29.8 MCHC 34.9 RDW 12.1 Plt Count 250 MPV 9.0 L Immature Gran % (Auto) 0.7 H Neut % (Auto) 47.4 Lymph % (Auto) 40.9 H Crook % (Auto) 9.5 Eos % (Auto) 0.8 Baso % (Auto) 0.7 Lymph # (Auto) 2.4 Crook # (Auto) 0.6 Eos # (Auto) 0.1 Baso # (Auto) 0.0 Abs Immat Gran (auto) 0.04 H Absolute Neuts (auto) 2.8 Absolute Nucleated RBC 0.000 Nucleated RBC % (auto) 0.0 Sodium 141 Potassium 4.4 Chloride 107 Carbon Dioxide 28 Anion Gap 10 L BUN 17 H Creatinine 0.81 Estim Creat Clear Calc 145.2 Estimated GFR > 60 Random Glucose 101 Fasting Glucose Estimat Average Glucose Hemoglobin A1c % Calcium 9.6 Total Bilirubin 1.2 H AST 11 ALT 14 Alkaline Phosphatase 52 Total Protein 7.6 Albumin 4.6 Triglycerides Cholesterol LDL Cholesterol, Calc HDL Cholesterol Urine Color Dark Yellow Urine Appearance Turbid Urine pH 8.0 Ur Specific Welches >= 1.030 H Urine Protein Negative Urine Glucose (UA) Negative Urine Ketones Trace Urine Blood Negative Urine Nitrite Negative Ur Leukocyte Esterase Trace H Urine RBC 0-2 Urine WBC 0-5 Ur Squamous Epith Cells 0-2 Urine Bacteria None Seen Hyaline Casts 0-2 Urine Opiates Screen Not Detected Urine Fentanyl Screen Not Detected Ur Barbiturates Screen Not Detected Ur Phencyclidine Scrn Not Detected Ur Amphetamines Screen Not Detected U Benzodiazepines Scrn Not Detected Urine Cocaine Screen Not Detected U Marijuana (THC) Screen POSITIVE H Ethyl Alcohol < 10 COVID-19 (ROSE) Negative COVID-19 Clin Com See Note 08/09/23 07:50 WBC RBC Hgb Hct MCV MCH MCHC RDW Plt Count MPV Immature Gran % (Auto) Neut % (Auto) Lymph % (Auto) Crook % (Auto) Eos % (Auto) Baso % (Auto) Lymph # (Auto) Crook # (Auto) Eos # (Auto) Baso # (Auto) Abs Immat Gran (auto) Absolute Neuts (auto) Absolute Nucleated RBC Nucleated RBC % (auto) Sodium 140 Potassium 4.4 Chloride 104 Carbon Dioxide 30 H Anion Gap 10 L BUN 18 H Creatinine 0.81 Estim Creat Clear Calc 145.2 Estimated GFR > 60 Random Glucose Fasting Glucose 110 H Estimat Average Glucose 108 Hemoglobin A1c % 5.4 Calcium 9.7 Total Bilirubin 2.0 H AST 11 ALT 14 Alkaline Phosphatase 52 Total Protein 6.9 Albumin 4.1 Triglycerides 111 Cholesterol 197 LDL Cholesterol, Calc 135 H HDL Cholesterol 40 L Urine Color Urine Appearance Urine pH Ur Specific Welches Urine Protein Urine Glucose (UA) Urine Ketones Urine Blood Urine Nitrite Ur Leukocyte Esterase Urine RBC Urine WBC Ur Squamous Epith Cells Urine Bacteria Hyaline Casts Urine Opiates Screen Urine Fentanyl Screen Ur Barbiturates Screen Ur Phencyclidine Scrn Ur Amphetamines Screen U Benzodiazepines Scrn Urine Cocaine Screen U Marijuana (THC) Screen Ethyl Alcohol COVID-19 (ROSE) COVID-19 Clin Com Medications Medications Current Medications Acetaminophen (Acetaminophen 325 Mg Tablet) 650 mg PO Q6H PRN PRN Reason: Headache/Pain Mild Scale (1-3) Al Hydroxide/Mg Hydroxide (Magnesium Hydrox/Alum Hydrox 30 Ml Oral.Susp) 30 ml PO Q6H PRN PRN Reason: Heartburn/Nausea Clonazepam (Clonazepam 1 Mg Tablet) 1 mg PO TID [facility] Last Admin: 08/10/23 09:13 Dose: 1 mg Clonazepam (Clonazepam 0.5 Mg Tablet) 0.5 mg PO BID PRN PRN Reason: anxiety/restlessness Last Admin: 08/09/23 21:36 Dose: 0.5 mg Clonidine HCl (Clonidine Hcl 0.1 Mg Tablet) 0.1 mg PO Q4H PRN; Protocol PRN Reason: moderate anxiety Last Admin: 08/09/23 23:34 Dose: 0.1 mg Magnesium Hydroxide (Milk Of Magnesia 30 Ml Oral.Susp) 30 ml PO DAILY PRN PRN Reason: Constipation Nicotine (Nicotine 21 Mg Patch.Td24) 21 mg TRANSDERMA DAILY [facility] Last Admin: 08/10/23 11:16 Dose: 21 mg Nicotine Polacrilex (Nicotine Polacrilex 2 Mg Gum) 4 mg BUCCAL Q2H PRN PRN Reason: Nicotine Cravings Last Admin: 08/09/23 16:33 Dose: 4 mg Olanzapine (Olanzapine 10 Mg Tablet) 10 mg PO BID [facility] Last Admin: 08/10/23 09:13 Dose: 10 mg Trazodone HCl (Trazodone Hcl 50 Mg Tablet) 50 mg PO BEDTIME MRX1 PRN PRN Reason: Insomnia Allergies Allergies Allergy/AdvReac Type Severity Reaction Status Date / Time No Known Allergies Allergy Verified 08/08/23 13:03 [No Known Allergies*] Assessment & Plan Assessment & Plan (1) Recurrent major depression-severe: Status: Acute Code(s): F33.2 - Major depressive disorder, recurrent severe without psychotic features (2) Anxiety: Status: Acute Code(s): F41.9 - Anxiety disorder, unspecified Plan 32-year-old male, established history of major depressive disorder, undergoing TM S treatment, recently started Strattera and subsequently developed panic, decreased sleep, feeling overwhelmed and unsafe. Some benefit from Klonopin. No substance use concerns. Does have a history of suicide attempts. Overall will continue Klonopin 1 mg 3 times per day and add 0.5 mg as needed twice daily. Will also have clonidine available, but has felt tired with this in the past, but agrees that might be helpful while in the hospital setting and while Strattera gets out of his system. Otherwise when stabilizes and safe, likely discharge to follow-up with already established TMS, psychiatrist and therapist. 08/09: Current medication regimen is helpful. Utilizing clonidine at times, but also reports feeling physically heavier when he utilizes this and therefore will not use that outside of the hospital. Reports that he hopes team will speak with his outpatient psychiatrist Dr. Rachell Castaneda around ADD treatments as they were initially going to start a stimulants ie Ritalin which was very helpful for him during college years, but patient preferred to try Strattera 1st. Given outcome, hopeful he can start Ritalin. Reason for continued inpatient stay Substantial Risk for: inability to function Time Spent With Patient Time: Total time managing care of this patient today ____ minutes.
[2023-08-10] MEDS: Nicotine Polacrilex 2 MG GUM 4 MG BUCCAL (14:42)
[2023-08-10 16:45] VITALS: BP 136/71; PULSE 86; RESP 16
[2023-08-10] MEDS: cloNIDine HCL 0.1 MG TABLET PO (16:45)
[2023-08-10 19:58] VITALS: BP 108/62; PULSE 88; RESP 16; TEMP 37.1; O2SAT 98
[2023-08-11 07:43] VITALS: BP 107/66; PULSE 79; RESP 16; TEMP 36.9; O2SAT 99
[2023-08-11] MEDS: OLANZapine 10 MG TABLET PO ×2 (09:04→20:30)
[2023-08-11] MEDS: clonazePAM 1 MG TABLET PO ×3 (09:04→20:30)
--- NOTE | 2023-08-11 10:10 | HO.PSYCHPN ---
Subjective Subjective Date of Service: 08/11/23 Reason For Visit: depression Subjective Notes: Conditional Voluntary Medical Problems Affecting Mental Status: No Interim History: 32 yo with depression/anxiety and adhd- had been doing better prior to trial of atomoxetine which inc anxiety- hx of stimulants in the past methylphenidate in particular which he felt helped him in college but then thought he didn't need in work life- says he can't focus/ read like he likes to - and changes from thing to thing- feeling better on clonazepam and olanazapine ? if mixed bipolar more dx - or bipolar 2 mixed, with adhd ? - Medication Compliance: Yes Side effects from medications: Yes (atomoxetine inc anxiety) Attending Groups: Intermittent Review of Systems Acute medical concerns: No Medical Review of Systems: unchanged Mental Status Exam Mental Status Exam Patient Appearance: Unkempt Patient Orientation: Person, Place, Time and Situation Level of Consciousness: Awake Patient Behavior: Appropriate, Cooperative and Good Eye Contact Mood Description: Nervous Patient Cognition Impaired: No Ability to Follow Directions: Good Speech Pattern: Clear Hallucinations: None Delusions: Not Present Thought Process: Intact Thought Content: positive for Goal Oriented Depressive Symptoms: Increased Anxiety, Diff. Making Decisions and Difficulty Concentrating Judgement: Good Diagnostics Vital Signs (24Hr): Vital Signs - 24 hr 08/10/23 16:45 08/10/23 19:58 08/11/23 07:43 Temperature 98.8 F 98.5 F Pulse Rate 86 88 79 Respiratory Rate 16 16 16 Blood Pressure 136/71 108/62 107/66 Pulse Oximetry 98 99 Oxygen Delivery Method Room Air Room Air BMI result Body Mass Index 26.3 Labs 08/08/23 13:41 08/09/23 07:50 Medications Medications Current Medications Acetaminophen (Acetaminophen 325 Mg Tablet) 650 mg PO Q6H PRN PRN Reason: Headache/Pain Mild Scale (1-3) Al Hydroxide/Mg Hydroxide (Magnesium Hydrox/Alum Hydrox 30 Ml Oral.Susp) 30 ml PO Q6H PRN PRN Reason: Heartburn/Nausea Clonazepam (Clonazepam 1 Mg Tablet) 1 mg PO TID [facility] Last Admin: 08/11/23 09:04 Dose: 1 mg Clonazepam (Clonazepam 0.5 Mg Tablet) 0.5 mg PO BID PRN PRN Reason: anxiety/restlessness Last Admin: 08/09/23 21:36 Dose: 0.5 mg Clonidine HCl (Clonidine Hcl 0.1 Mg Tablet) 0.1 mg PO Q4H PRN; Protocol PRN Reason: moderate anxiety Last Admin: 08/10/23 16:45 Dose: 0.1 mg Magnesium Hydroxide (Milk Of Magnesia 30 Ml Oral.Susp) 30 ml PO DAILY PRN PRN Reason: Constipation Nicotine (Nicotine 21 Mg Patch.Td24) 21 mg TRANSDERMA DAILY [facility] Last Admin: 08/11/23 10:02 Dose: Not Given Nicotine Polacrilex (Nicotine Polacrilex 2 Mg Gum) 4 mg BUCCAL Q2H PRN PRN Reason: Nicotine Cravings Last Admin: 08/10/23 14:42 Dose: 4 mg Olanzapine (Olanzapine 10 Mg Tablet) 10 mg PO BID [facility] Last Admin: 08/11/23 09:04 Dose: 10 mg Trazodone HCl (Trazodone Hcl 50 Mg Tablet) 50 mg PO BEDTIME MRX1 PRN PRN Reason: Insomnia Allergies Allergies Allergy/AdvReac Type Severity Reaction Status Date / Time No Known Allergies Allergy Verified 08/08/23 13:03 [No Known Allergies*] Assessment & Plan Assessment & Plan (1) Recurrent major depression-severe: Status: Acute Code(s): F33.2 - Major depressive disorder, recurrent severe without psychotic features (2) Anxiety: Status: Acute Code(s): F41.9 - Anxiety disorder, unspecified (3) ADHD: Status: Acute Code(s): F90.9 - Attention-deficit hyperactivity disorder, unspecified type Assessment and Plan: possible trial of methylphenidate Plan 32-year-old male, established history of major depressive disorder, undergoing TM S treatment, recently started Strattera and subsequently developed panic, decreased sleep, feeling overwhelmed and unsafe. Some benefit from Klonopin. No substance use concerns. Does have a history of suicide attempts. Overall will continue Klonopin 1 mg 3 times per day and add 0.5 mg as needed twice daily. Will also have clonidine available, but has felt tired with this in the past, but agrees that might be helpful while in the hospital setting and while Strattera gets out of his system. Otherwise when stabilizes and safe, likely discharge to follow-up with already established TMS, psychiatrist and therapist. 08/09: Current medication regimen is helpful. Utilizing clonidine at times, but also reports feeling physically heavier when he utilizes this and therefore will not use that outside of the hospital. Reports that he hopes team will speak with his outpatient psychiatrist Dr. Rachell Castaneda around ADD treatments as they were initially going to start a stimulants ie Ritalin which was very helpful for him during college years, but patient preferred to try Strattera 1st. Given outcome, hopeful he can start Ritalin. 08/10 will start methylphenidate- but med combo seems more consistent with bipolar 2 Mixed for dx - Patient educated on: medication risk/benefits Informed Consent: understands (re ritalin) Reason for continued inpatient stay Substantial Risk for: harm to self and med/psych decompensation Time Spent With Patient Time: Total time managing care of this patient today ____ minutes.
[2023-08-11] MEDS: Nicotine Polacrilex 2 MG GUM 4 MG BUCCAL ×3 (12:09→20:02)
[2023-08-11] MEDS: Nicotine 21 MG PATCH.TD24 TRANSDERMA (12:11)
[2023-08-11] MEDS: clonazePAM 0.5 MG TABLET PO ×2 (13:11→22:27)
[2023-08-11 16:00] VITALS: BP 129/72; PULSE 91; RESP 18; O2SAT 98
[2023-08-11] MEDS: cloNIDine HCL 0.1 MG TABLET PO ×2 (16:07→23:32)
[2023-08-11 19:15] VITALS: BP 109/63; PULSE 87; RESP 16; TEMP 36.7; O2SAT 97
[2023-08-12 07:36] VITALS: BP 99/61; PULSE 76; RESP 16; TEMP 36.4; O2SAT 98
[2023-08-12] MEDS: Methylphenidate HCl 10 MG TABLET PO ×2 (08:16→15:26)
[2023-08-12] MEDS: OLANZapine 10 MG TABLET PO ×2 (08:16→20:33)
[2023-08-12] MEDS: clonazePAM 1 MG TABLET PO ×3 (09:28→20:33)
[2023-08-12] MEDS: Nicotine 21 MG PATCH.TD24 TRANSDERMA (09:29)
--- NOTE | 2023-08-12 11:23 | P.PNPSI_ITS ---
Subjective Subjective Date of Service: 08/12/23 Reason For Visit: depression Subjective Notes: Conditional Voluntary Interim History: Reviewed with Dr. Lantigua. Social with peers, attending groups. Pt reports feeling a lot better today; pt stated, I'm feeling like I can focus and read. I feel like my anxiety is coming down . Pt denies SI/HI/VH/AH. Pt stated, I don't want to kill myself. I have a daughter that I want to be there for . Pt requested to have Ritalin scheduled BID; pt stated, I've taken Ritalin in the past and do better when I take it twice a day. It helps decrease my anxiety . Ritalin increased to 10mg PO BID@0800,1500 Medication Compliance: Yes Side effects from medications: No Attending Groups: Yes Review of Systems Constitutional: Reports as per HPI Eyes: Reports as per HPI Reports as per HPI Cardiovascular: Reports as per HPI Respiratory: Reports as per HPI Gastrointestinal: Reports as per HPI Genitourinary: Reports as per HPI Musculoskeletal: Reports as per HPI Skin/Breast: Reports as per HPI Reports as per HPI Psychiatric: Reports as per HPI Endocrine: Reports as per HPI Hematologic/Lymphatic: Reports as per HPI Allergic/Immunologic: Reports as per HPI Mental Status Exam Mental Status Exam Narrative: Pt is alert and oriented; behavior is cooperative and calm; dressed in casual attire; mood is described as better ; eye contact appropriate; Speech is normal rate, volume and prosody and not pressured; thought process is organized and goal directed; Thought content is on tx; otherwise pertinent to relevant topics and without any delusional content, paranoid ideations or grandiosity; denies SI/HI/VH/AH. Diagnostics Vital Signs (24Hr): Vital Signs - 24 hr 08/11/23 16:00 08/11/23 19:15 08/12/23 07:36 Temperature 98.0 F 97.6 F Pulse Rate 91 87 76 Respiratory Rate 18 16 16 Blood Pressure 129/72 109/63 99/61 Pulse Oximetry 98 97 98 Oxygen Delivery Method Room Air Room Air Room Air BMI result Body Mass Index 26.3 Labs 08/08/23 13:41 08/09/23 07:50 Medications Medications Current Medications Acetaminophen (Acetaminophen 325 Mg Tablet) 650 mg PO Q6H PRN PRN Reason: Headache/Pain Mild Scale (1-3) Al Hydroxide/Mg Hydroxide (Magnesium Hydrox/Alum Hydrox 30 Ml Oral.Susp) 30 ml PO Q6H PRN PRN Reason: Heartburn/Nausea Clonazepam (Clonazepam 1 Mg Tablet) 1 mg PO TID [facility] Last Admin: 08/12/23 09:28 Dose: 1 mg Clonazepam (Clonazepam 0.5 Mg Tablet) 0.5 mg PO BID PRN PRN Reason: anxiety/restlessness Last Admin: 08/11/23 22:27 Dose: 0.5 mg Clonidine HCl (Clonidine Hcl 0.1 Mg Tablet) 0.1 mg PO Q4H PRN; Protocol PRN Reason: moderate anxiety Last Admin: 08/11/23 23:32 Dose: 0.1 mg Magnesium Hydroxide (Milk Of Magnesia 30 Ml Oral.Susp) 30 ml PO DAILY PRN PRN Reason: Constipation Methylphenidate HCl (Methylphenidate Hcl 10 Mg Tablet) 10 mg PO DAILY [facility] Last Admin: 08/12/23 08:16 Dose: 10 mg Nicotine (Nicotine 21 Mg Patch.Td24) 21 mg TRANSDERMA DAILY [facility] Last Admin: 08/12/23 09:29 Dose: 21 mg Nicotine Polacrilex (Nicotine Polacrilex 2 Mg Gum) 4 mg BUCCAL Q2H PRN PRN Reason: Nicotine Cravings Last Admin: 08/11/23 20:02 Dose: 4 mg Olanzapine (Olanzapine 10 Mg Tablet) 10 mg PO BID [facility] Last Admin: 08/12/23 08:16 Dose: 10 mg Trazodone HCl (Trazodone Hcl 50 Mg Tablet) 50 mg PO BEDTIME MRX1 PRN PRN Reason: Insomnia Allergies Allergies Allergy/AdvReac Type Severity Reaction Status Date / Time No Known Allergies Allergy Verified 08/08/23 13:03 [No Known Allergies*] Assessment & Plan Assessment & Plan (1) Recurrent major depression-severe: Status: Acute Code(s): F33.2 - Major depressive disorder, recurrent severe without psychotic features (2) Anxiety: Status: Acute Code(s): F41.9 - Anxiety disorder, unspecified (3) ADHD: Status: Acute Code(s): F90.9 - Attention-deficit hyperactivity disorder, unspecified type Assessment and Plan: possible trial of methylphenidate Plan 32-year-old male, established history of major depressive disorder, undergoing TM S treatment, recently started Strattera and subsequently developed panic, decreased sleep, feeling overwhelmed and unsafe. Some benefit from Klonopin. No substance use concerns. Does have a history of suicide attempts. Overall will continue Klonopin 1 mg 3 times per day and add 0.5 mg as needed twice daily. Will also have clonidine available, but has felt tired with this in the past, but agrees that might be helpful while in the hospital setting and while Strattera gets out of his system. Otherwise when stabilizes and safe, likely discharge to follow-up with already established TMS, psychiatrist and therapist. 08/09: Current medication regimen is helpful. Utilizing clonidine at times, but also reports feeling physically heavier when he utilizes this and therefore will not use that outside of the hospital. Reports that he hopes team will speak with his outpatient psychiatrist Dr. Rachell Castaneda around ADD treatments as they were initially going to start a stimulants ie Ritalin which was very helpful for him during college years, but patient preferred to try Strattera 1st. Given outcome, hopeful he can start Ritalin. 08/10 will start methylphenidate- but med combo seems more consistent with bipolar 2 Mixed for dx - 08/11: Social with peers, attending groups. Pt reports feeling a lot better today; pt stated, I'm feeling like I can focus and read. I feel like my anxiety is coming down . Pt denies SI/HI/VH/AH. Pt stated, I don't want to kill myself. I have a daughter that I want to be there for . Pt requested to have Ritalin scheduled BID; pt stated, I've taken Ritalin in the past and do better when I take it twice a day. It helps decrease my anxiety . Ritalin increased to 10mg PO BID@0800,1500 Patient educated on: diagnosis, medication risk/benefits and therapeutic strategies Informed Consent: understands Reason for continued inpatient stay Substantial Risk for: med/psych decompensation Time Spent With Patient Time: Total time managing care of this patient today _20___ minutes.
[2023-08-12 19:35] VITALS: BP 124/65; PULSE 86; RESP 16; TEMP 36.9; O2SAT 98
[2023-08-12 22:09] VITALS: BP 117/75
[2023-08-12] MEDS: cloNIDine HCL 0.1 MG TABLET PO (22:09)
[2023-08-12 22:10] VITALS: BP 117/75; PULSE 78
[2023-08-12] MEDS: clonazePAM 0.5 MG TABLET PO (23:03)
[2023-08-13 06:00] VITALS: BP 106/62; PULSE 79; RESP 18; TEMP 36.5; O2SAT 98
[2023-08-13] MEDS: OLANZapine 10 MG TABLET PO ×2 (08:16→20:12)
[2023-08-13] MEDS: Methylphenidate HCl 10 MG TABLET PO ×2 (08:16→14:09)
[2023-08-13] MEDS: clonazePAM 1 MG TABLET PO ×3 (08:16→20:12)
--- NOTE | 2023-08-13 09:44 | P.PNPSI_ITS ---
Subjective Subjective Date of Service: 08/13/23 Reason For Visit: depression Subjective Notes: Conditional Voluntary Interim History: Reviewed with Dr. Lantigua. Social with peers, attending groups. Pt reports feeling pretty good ; pt stated, I feel more like myself than I have in a while. I'm able to focus on my thoughts . Pt denies SI/HI/VH/AH. Pt looking forward to discharge on Friday. Medication Compliance: Yes Side effects from medications: No Attending Groups: Yes Review of Systems Constitutional: Reports as per HPI Eyes: Reports as per HPI Reports as per HPI Cardiovascular: Reports as per HPI Respiratory: Reports as per HPI Gastrointestinal: Reports as per HPI Genitourinary: Reports as per HPI Musculoskeletal: Reports as per HPI Skin/Breast: Reports as per HPI Reports as per HPI Psychiatric: Reports as per HPI Endocrine: Reports as per HPI Hematologic/Lymphatic: Reports as per HPI Allergic/Immunologic: Reports as per HPI Mental Status Exam Mental Status Exam Narrative: Pt is alert and oriented; behavior is cooperative and calm; dressed in casual attire; mood is described as better ; eye contact appropriate; Speech is normal rate, volume and prosody and not pressured; thought process is organized and goal directed; Thought content is on tx; otherwise pertinent to relevant topics and without any delusional content, paranoid ideations or grandiosity; denies SI/HI/VH/AH. Diagnostics Vital Signs (24Hr): Vital Signs - 24 hr 08/12/23 19:35 08/12/23 22:09 08/12/23 22:10 Temperature 98.5 F Pulse Rate 86 78 Respiratory Rate 16 Blood Pressure 124/65 117/75 117/75 Pulse Oximetry 98 Oxygen Delivery Method Room Air 08/13/23 06:00 Temperature 97.7 F Pulse Rate 79 Respiratory Rate 18 Blood Pressure 106/62 Pulse Oximetry 98 Oxygen Delivery Method Room Air BMI result Body Mass Index 26.3 Labs 08/08/23 13:41 08/09/23 07:50 Medications Medications Current Medications Acetaminophen (Acetaminophen 325 Mg Tablet) 650 mg PO Q6H PRN PRN Reason: Headache/Pain Mild Scale (1-3) Al Hydroxide/Mg Hydroxide (Magnesium Hydrox/Alum Hydrox 30 Ml Oral.Susp) 30 ml PO Q6H PRN PRN Reason: Heartburn/Nausea Clonazepam (Clonazepam 1 Mg Tablet) 1 mg PO TID [facility] Last Admin: 08/13/23 08:16 Dose: 1 mg Clonazepam (Clonazepam 0.5 Mg Tablet) 0.5 mg PO BID PRN PRN Reason: anxiety/restlessness Last Admin: 08/12/23 23:03 Dose: 0.5 mg Clonidine HCl (Clonidine Hcl 0.1 Mg Tablet) 0.1 mg PO Q4H PRN; Protocol PRN Reason: moderate anxiety Last Admin: 08/12/23 22:09 Dose: 0.1 mg Magnesium Hydroxide (Milk Of Magnesia 30 Ml Oral.Susp) 30 ml PO DAILY PRN PRN Reason: Constipation Methylphenidate HCl (Methylphenidate Hcl 10 Mg Tablet) 10 mg PO BID@0800,1500 [facility] Last Admin: 08/13/23 08:16 Dose: 10 mg Nicotine (Nicotine 21 Mg Patch.Td24) 21 mg TRANSDERMA DAILY [facility] Last Admin: 08/13/23 09:21 Dose: Not Given Nicotine Polacrilex (Nicotine Polacrilex 2 Mg Gum) 4 mg BUCCAL Q2H PRN PRN Reason: Nicotine Cravings Last Admin: 08/11/23 20:02 Dose: 4 mg Olanzapine (Olanzapine 10 Mg Tablet) 10 mg PO BID [facility] Last Admin: 08/13/23 08:16 Dose: 10 mg Trazodone HCl (Trazodone Hcl 50 Mg Tablet) 50 mg PO BEDTIME MRX1 PRN PRN Reason: Insomnia Allergies Allergies Allergy/AdvReac Type Severity Reaction Status Date / Time No Known Allergies Allergy Verified 08/08/23 13:03 [No Known Allergies*] Assessment & Plan Assessment & Plan (1) Recurrent major depression-severe: Status: Acute Code(s): F33.2 - Major depressive disorder, recurrent severe without psychotic features (2) Anxiety: Status: Acute Code(s): F41.9 - Anxiety disorder, unspecified (3) ADHD: Status: Acute Code(s): F90.9 - Attention-deficit hyperactivity disorder, unspecified type Assessment and Plan: possible trial of methylphenidate Plan 32-year-old male, established history of major depressive disorder, undergoing TM S treatment, recently started Strattera and subsequently developed panic, decreased sleep, feeling overwhelmed and unsafe. Some benefit from Klonopin. No substance use concerns. Does have a history of suicide attempts. Overall will continue Klonopin 1 mg 3 times per day and add 0.5 mg as needed twice daily. Will also have clonidine available, but has felt tired with this in the past, but agrees that might be helpful while in the hospital setting and while Strattera gets out of his system. Otherwise when stabilizes and safe, likely discharge to follow-up with already established TMS, psychiatrist and therapist. 08/09: Current medication regimen is helpful. Utilizing clonidine at times, but also reports feeling physically heavier when he utilizes this and therefore will not use that outside of the hospital. Reports that he hopes team will speak with his outpatient psychiatrist Dr. Rachell Castaneda around ADD treatments as they were initially going to start a stimulants ie Ritalin which was very helpful for him during college years, but patient preferred to try Strattera 1st. Given outcome, hopeful he can start Ritalin. 08/10 will start methylphenidate- but med combo seems more consistent with bipolar 2 Mixed for dx - 08/11: Social with peers, attending groups. Pt reports feeling a lot better today; pt stated, I'm feeling like I can focus and read. I feel like my anxiety is coming down . Pt denies SI/HI/VH/AH. Pt stated, I don't want to kill myself. I have a daughter that I want to be there for . Pt requested to have Ritalin scheduled BID; pt stated, I've taken Ritalin in the past and do better when I take it twice a day. It helps decrease my anxiety . Ritalin increased to 10mg PO BID@0800,1500 08/12: Social with peers, attending groups. Pt reports feeling pretty good ; pt stated, I feel more like myself than I have in a while. I'm able to focus on my thoughts . Pt denies SI/HI/VH/AH. Pt looking forward to discharge on Friday. Patient educated on: diagnosis and medication risk/benefits Informed Consent: understands Reason for continued inpatient stay Substantial Risk for: med/psych decompensation Time Spent With Patient Time: Total time managing care of this patient today _20___ minutes.
[2023-08-13 20:00] VITALS: BP 116/78; PULSE 82; RESP 16; TEMP 36.6; O2SAT 98
[2023-08-14 07:00] VITALS: BMI 26.8
[2023-08-14 08:00] VITALS: BP 121/65; PULSE 79; RESP 16; TEMP 37; O2SAT 99
--- NOTE | 2023-08-14 08:03 | P.PNPSI_ITS ---
Subjective Subjective Date of Service: 08/14/23 Reason For Visit: depression Subjective Notes: Conditional Voluntary Interim History: Reviewed with Dr. Lantigua. Pt reports feeling good ;pt reports sleeping well. He is looking forward to discharge tomorrow and plans on following up with his outpatient providers. Pt denies SI/HI/VH/AH. Medication Compliance: Yes Side effects from medications: No Attending Groups: Yes Review of Systems Constitutional: Reports as per HPI Eyes: Reports as per HPI Reports as per HPI Cardiovascular: Reports as per HPI Respiratory: Reports as per HPI Gastrointestinal: Reports as per HPI Genitourinary: Reports as per HPI Musculoskeletal: Reports as per HPI Skin/Breast: Reports as per HPI Reports as per HPI Psychiatric: Reports as per HPI Endocrine: Reports as per HPI Hematologic/Lymphatic: Reports as per HPI Allergic/Immunologic: Reports as per HPI Mental Status Exam Mental Status Exam Narrative: Pt is alert and oriented; behavior is cooperative and calm; dressed in casual attire; mood is described as good ; eye contact appropriate; Speech is normal rate, volume and prosody and not pressured; thought process is organized and goal directed; Thought content is on tx; otherwise pertinent to relevant topics and without any delusional content, paranoid ideations or grandiosity; denies SI/HI/VH/AH. Diagnostics Vital Signs (24Hr): Vital Signs - 24 hr 08/13/23 20:00 Temperature 97.8 F Pulse Rate 82 Respiratory Rate 16 Blood Pressure 116/78 Pulse Oximetry 98 Oxygen Delivery Method Room Air BMI result Body Mass Index 26.3 Labs 08/08/23 13:41 08/09/23 07:50 Medications Medications Current Medications Acetaminophen (Acetaminophen 325 Mg Tablet) 650 mg PO Q6H PRN PRN Reason: Headache/Pain Mild Scale (1-3) Al Hydroxide/Mg Hydroxide (Magnesium Hydrox/Alum Hydrox 30 Ml Oral.Susp) 30 ml PO Q6H PRN PRN Reason: Heartburn/Nausea Clonazepam (Clonazepam 1 Mg Tablet) 1 mg PO TID [facility] Last Admin: 08/13/23 20:12 Dose: 1 mg Clonazepam (Clonazepam 0.5 Mg Tablet) 0.5 mg PO BID PRN PRN Reason: anxiety/restlessness Last Admin: 08/12/23 23:03 Dose: 0.5 mg Clonidine HCl (Clonidine Hcl 0.1 Mg Tablet) 0.1 mg PO Q4H PRN; Protocol PRN Reason: moderate anxiety Last Admin: 08/12/23 22:09 Dose: 0.1 mg Magnesium Hydroxide (Milk Of Magnesia 30 Ml Oral.Susp) 30 ml PO DAILY PRN PRN Reason: Constipation Methylphenidate HCl (Methylphenidate Hcl 10 Mg Tablet) 10 mg PO BID@0800,1300 [facility] Nicotine (Nicotine 21 Mg Patch.Td24) 21 mg TRANSDERMA DAILY [facility] Last Admin: 08/13/23 09:21 Dose: Not Given Nicotine Polacrilex (Nicotine Polacrilex 2 Mg Gum) 4 mg BUCCAL Q2H PRN PRN Reason: Nicotine Cravings Last Admin: 08/11/23 20:02 Dose: 4 mg Olanzapine (Olanzapine 10 Mg Tablet) 10 mg PO BID [facility] Last Admin: 08/13/23 20:12 Dose: 10 mg Allergies Allergies Allergy/AdvReac Type Severity Reaction Status Date / Time No Known Allergies Allergy Verified 08/08/23 13:03 [No Known Allergies*] Assessment & Plan Assessment & Plan (1) Recurrent major depression-severe: Status: Acute Code(s): F33.2 - Major depressive disorder, recurrent severe without psychotic features (2) Anxiety: Status: Acute Code(s): F41.9 - Anxiety disorder, unspecified (3) ADHD: Status: Acute Code(s): F90.9 - Attention-deficit hyperactivity disorder, unspecified type Assessment and Plan: possible trial of methylphenidate Plan 32-year-old male, established history of major depressive disorder, undergoing TM S treatment, recently started Strattera and subsequently developed panic, decreased sleep, feeling overwhelmed and unsafe. Some benefit from Klonopin. No substance use concerns. Does have a history of suicide attempts. Overall will continue Klonopin 1 mg 3 times per day and add 0.5 mg as needed twice daily. Will also have clonidine available, but has felt tired with this in the past, but agrees that might be helpful while in the hospital setting and while Strattera gets out of his system. Otherwise when stabilizes and safe, likely discharge to follow-up with already established TMS, psychiatrist and therapist. 08/09: Current medication regimen is helpful. Utilizing clonidine at times, but also reports feeling physically heavier when he utilizes this and therefore will not use that outside of the hospital. Reports that he hopes team will speak with his outpatient psychiatrist Dr. Rachell Castaneda around ADD treatments as they were initially going to start a stimulants ie Ritalin which was very helpful for him during college years, but patient preferred to try Strattera 1st. Given outcome, hopeful he can start Ritalin. 08/10 will start methylphenidate- but med combo seems more consistent with bipolar 2 Mixed for dx - 08/11: Social with peers, attending groups. Pt reports feeling a lot better today; pt stated, I'm feeling like I can focus and read. I feel like my anxiety is coming down . Pt denies SI/HI/VH/AH. Pt stated, I don't want to kill myself. I have a daughter that I want to be there for . Pt requested to have Ritalin scheduled BID; pt stated, I've taken Ritalin in the past and do better when I take it twice a day. It helps decrease my anxiety . Ritalin increased to 10mg PO BID@0800,1500 08/12: Social with peers, attending groups. Pt reports feeling pretty good ; pt stated, I feel more like myself than I have in a while. I'm able to focus on my thoughts . Pt denies SI/HI/VH/AH. Pt looking forward to discharge on Friday. 08/13: Pt reports feeling good ;pt reports sleeping well. He is looking forward to discharge tomorrow and plans on following up with his outpatient providers. Pt denies SI/HI/VH/AH. Patient educated on: diagnosis, medication risk/benefits and therapeutic strategies Informed Consent: understands Reason for continued inpatient stay Substantial Risk for: stable for discharge Time Spent With Patient Time: Total time managing care of this patient today _20___ minutes.
[2023-08-14] MEDS: Methylphenidate HCl 10 MG TABLET PO ×2 (08:30→13:02)
[2023-08-14] MEDS: OLANZapine 10 MG TABLET PO ×2 (08:30→20:01)
[2023-08-14] MEDS: clonazePAM 1 MG TABLET PO ×3 (08:30→20:01)
[2023-08-14 19:15] VITALS: BP 118/65; PULSE 80; RESP 16; TEMP 36.9; O2SAT 97
[2023-08-14 21:33] VITALS: BP 119/69
[2023-08-14] MEDS: cloNIDine HCL 0.1 MG TABLET PO (21:33)
[2023-08-15 07:29] VITALS: BP 93/53; PULSE 87; RESP 16; TEMP 36.6; O2SAT 99
[2023-08-15] MEDS: Methylphenidate HCl 10 MG TABLET PO (08:27)
[2023-08-15] MEDS: clonazePAM 1 MG TABLET PO (08:27)
[2023-08-15] MEDS: OLANZapine 10 MG TABLET PO (08:27)
--- NOTE | 2023-08-15 09:07 | P.DS_ITS ---
DS: Providers Provider Date of Service: 08/15/23 Date of admission: 08/08/23 18:48 Date of discharge: 08/15/23 Primary care physician: Long Mcgowan MD Attending physician on admission: Miguel Schmidt Attending physician on discharge: Moreno Lantigua Discharging clinician: Myra Thomas DS: Diagnosis Discharge Diagnosis (1) Recurrent major depression-severe: Status: Acute (2) Anxiety: Status: Acute (3) ADHD: Status: Acute DS: Medications Discharge Medications Home Medications: Home Medications ?Medication ?Instructions ?Recorded ?Confirmed clonazepam 0.5 mg tablet (Klonopin) 1 mg PO TID PRN Anxiety 06/20/20 08/08/23 Previous Rx's ?Medication ?Instructions ?Recorded clonazepam 0.5 mg tablet 0.5 mg PO BID PRN 08/14/23 Anxiety/Restlessness 7 days #7 tabs clonidine HCl 0.1 mg tablet 0.1 mg PO TID PRN moderate anxiety 08/14/23 30 days #90 tabs methylphenidate HCl 10 mg tablet 10 mg PO BID@0800,1300 14 days #28 08/14/23 tabs olanzapine 10 mg tablet (Zyprexa) 10 mg PO BID 30 days #60 tabs 08/14/23 Mental Status Exam Mental Status Exam Narrative: Pt is alert and oriented; behavior is cooperative and calm; dressed in casual attire; mood is described as good ; eye contact appropriate; Speech is normal rate, volume and prosody and not pressured; thought process is organized and goal directed; Thought content is on tx; otherwise pertinent to relevant topics and without any delusional content, paranoid ideations or grandiosity; denies SI/HI/VH/AH. Data Data Completed and Pending Completed studies during hospitalization [Text1]: 08/08/23 08/08/23 08/08/23 13:28 13:41 16:07 WBC 6.0 RBC 5.24 Hgb 15.6 Hct 44.7 MCV 85.3 MCH 29.8 MCHC 34.9 RDW 12.1 Plt Count 250 MPV 9.0 L Immature Gran % (Auto) 0.7 H Neut % (Auto) 47.4 Lymph % (Auto) 40.9 H [place] % (Auto) 9.5 Eos % (Auto) 0.8 Baso % (Auto) 0.7 Lymph # (Auto) 2.4 [place] # (Auto) 0.6 Eos # (Auto) 0.1 Baso # (Auto) 0.0 Abs Immat Gran (auto) 0.04 H Absolute Neuts (auto) 2.8 Absolute Nucleated RBC 0.000 Nucleated RBC % (auto) 0.0 Sodium 141 Potassium 4.4 Chloride 107 Carbon Dioxide 28 Anion Gap 10 L BUN 17 H Creatinine 0.81 Estim Creat Clear Calc 145.2 Estimated GFR > 60 Random Glucose 101 Fasting Glucose Estimat Average Glucose Hemoglobin A1c % Calcium 9.6 Total Bilirubin 1.2 H AST 11 ALT 14 Alkaline Phosphatase 52 Total Protein 7.6 Albumin 4.6 Triglycerides Cholesterol LDL Cholesterol, Calc HDL Cholesterol Urine Color Dark Yellow Urine Appearance Turbid Urine pH 8.0 Ur Specific Hanna >= 1.030 H Urine Protein Negative Urine Glucose (UA) Negative Urine Ketones Trace Urine Blood Negative Urine Nitrite Negative Ur Leukocyte Esterase Trace H Urine RBC 0-2 Urine WBC 0-5 Ur Squamous Epith Cells 0-2 Urine Bacteria None Seen Hyaline Casts 0-2 Urine Opiates Screen Not Detected Urine Fentanyl Screen Not Detected Ur Barbiturates Screen Not Detected Ur Phencyclidine Scrn Not Detected Ur Amphetamines Screen Not Detected U Benzodiazepines Scrn Not Detected Urine Cocaine Screen Not Detected U Marijuana (THC) Screen POSITIVE H Ethyl Alcohol < 10 COVID-19 (ROSE) Negative COVID-19 Clin Com See Note 08/09/23 07:50 WBC RBC Hgb Hct MCV MCH MCHC RDW Plt Count MPV Immature Gran % (Auto) Neut % (Auto) Lymph % (Auto) [place] % (Auto) Eos % (Auto) Baso % (Auto) Lymph # (Auto) [place] # (Auto) Eos # (Auto) Baso # (Auto) Abs Immat Gran (auto) Absolute Neuts (auto) Absolute Nucleated RBC Nucleated RBC % (auto) Sodium 140 Potassium 4.4 Chloride 104 Carbon Dioxide 30 H Anion Gap 10 L BUN 18 H Creatinine 0.81 Estim Creat Clear Calc 145.2 Estimated GFR > 60 Random Glucose Fasting Glucose 110 H Estimat Average Glucose 108 Hemoglobin A1c % 5.4 Calcium 9.7 Total Bilirubin 2.0 H AST 11 ALT 14 Alkaline Phosphatase 52 Total Protein 6.9 Albumin 4.1 Triglycerides 111 Cholesterol 197 LDL Cholesterol, Calc 135 H HDL Cholesterol 40 L Urine Color Urine Appearance Urine pH Ur Specific [place]anna Urine Protein Urine Glucose (UA) Urine Ketones Urine Blood Urine Nitrite Ur Leukocyte Esterase Urine RBC Urine WBC Ur Squamous Epith Cells Urine Bacteria Hyaline Casts Urine Opiates Screen Urine Fentanyl Screen Ur Barbiturates Screen Ur Phencyclidine Scrn Ur Amphetamines Screen U Benzodiazepines Scrn Urine Cocaine Screen U Marijuana (THC) Screen Ethyl Alcohol COVID-19 (ROSE) COVID-19 Clin Com DS: Summary Hospital Course Hospital Course: 32-year-old male admitted after meeting with psychiatrist, Dr. Rachell Castaneda while undergoing TMS treatment. advise to have inpatient level of care due to significant anxiety, poor sleep, feeling overwhelmed and unsafe. This was in the context of responding well to TMS having had 24/36 sessions. In the context of doing well, Strattera was started to treat ADD as patient was feeling more able to do things. Strattera started 10 days ago and subsequently had increased panic, poor sleep, overwhelmed, feeling unsafe. Reports he has tried stimulants in the past but does not like how he feels on them. Initially Ativan tried for anxiety and panic, this was switched to Klonopin. Also of note was admitted psychiatrically in May of 2023 and clonidine was helpful. This was in the context of suicide attempt of cutting his wrists, which was aborted as he left a note and 911 was called while he was trying to do this. Also tied a sheet around his neck at [facility]. This was following the break-up of a 2 year relationship. They also have a [id number] daughter, called Leilani and split custody. Living with parents in [place]. 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 No substance issues. No history of nicola or psychosis. Has seasonal affective disorder and MDD. During hospital course, 32-year-old male, established history of major depressive disorder, undergoing TM S treatment, recently started Strattera and subsequently developed panic, decreased sleep, feeling overwhelmed and unsafe. Some benefit from Klonopin. No substance use concerns. Does have a history of suicide attempts. Overall will continue Klonopin 1 mg 3 times per day and add 0.5 mg as needed twice daily. Will also have clonidine available, but has felt tired with this in the past, but agrees that might be helpful while in the hospital setting and while Strattera gets out of his system. Otherwise when stabilizes and safe, likely discharge to follow-up with already established TMS, psychiatrist and therapist. Current medication regimen is helpful. Utilizing clonidine at times, but also reports feeling physically heavier when he utilizes this and therefore will not use that outside of the hospital. Reports that he hopes team will speak with his outpatient psychiatrist Dr. Rachell Castaneda around ADD treatments as they were initially going to start a stimulants ie Ritalin which was very helpful for him during college years, but patient preferred to try Strattera 1st. Given outcome, hopeful he can start Ritalin. will start methylphenidate- but med combo seems more consistent with bipolar 2 Mixed for dx - Social with peers, attending groups. Pt reports feeling a lot better today; pt stated, I'm feeling like I can focus and read. I feel like my anxiety is coming down . Pt denies SI/HI/VH/AH. Pt stated, I don't want to kill myself. I have a daughter that I want to be there for . Pt requested to have Ritalin scheduled BID; pt stated, I've taken Ritalin in the past and do better when I take it twice a day. It helps decrease my anxiety . Ritalin increased to 10mg PO BID@0800,1500 Social with peers, attending groups. Pt reports feeling pretty good ; pt stated, I feel more like myself than I have in a while. I'm able to focus on my thoughts . Pt denies SI/HI/VH/AH. Pt looking forward to discharge on Friday. Pt reports feeling good ;pt reports sleeping well. He is looking forward to discharge and plans on following up with his outpatient providers. Pt denies SI/HI/VH/AH. Time spent discussing smoking cessation with patient: 3 to 10 minutes Status at Discharge Cognitive/behavioral status at discharge: Patient was interviewed prior to discharge and found to be fully oriented and without SI or HI. Patient has insight and demonstrates good judgment in terms of wanting to pursue treatment. Patient has a safety plan that includes presenting to the closest ER or calling 911 if feeling unsafe. Functional status at discharge: independent ambulation Overall status at discharge: patient is back to baseline Time Spent with Patient Time attestation: Total time managing care of this patient today _20___ minutes. Time spent: Less than 30 minutes Discharge Plan Discharge Anticipated Discharge Date/Time: 08/15/23 10:30 Patient Disposition: Home, Self-Care Discharge Diagnosis: MDD, YANI, ADHD Referrals: Dr. Rachell Castaneda (Psychiatry) [Other] - 08/20/23 2:00 pm (IN OFFICE APPOINTMENT) TMS [Other] - 08/18/23 12:30 pm Subhash Munson (Therapy) [Other] - 08/18/23 11:00 am () Long Mcgowan MD [Primary Care Provider] - 08/20/23 1:00 am (PCP follow up confirmed for August 20, 2023 1:[address]pm. Dr. Long Mcgowan - [address] [place] [address] ) Discharge Medications: New clonidine HCl 0.1 mg Tablet 0.1 mg PO TID PRN (Reason: moderate anxiety) 30 Days Qty: 90 0RF Protocol: Hold for SBP< HOLD for SBP < : 90 clonazepam 0.5 mg Tablet 0.5 mg PO BID PRN (Reason: Anxiety/Restlessness) 7 Days Qty: 7 0RF methylphenidate HCl 10 mg Tablet 10 mg PO BID@0800,1300 14 Days Qty: 28 0RF Rx Instructions: Partial Fill upon patient request. Continued clonazepam [Klonopin] 0.5 mg Tablet 1 mg PO TID PRN (Reason: Anxiety) olanzapine [Zyprexa] 10 mg Tablet 10 mg PO BID 30 Days Qty: 60 0RF Discharge Orders: Discharge Order (Routine); Ordered 08/15/23 Ordered By: Myra Thomas Diet: Regular diet Activity on Discharge: As tolerated Stand Alone Forms: Patient Portal Discharge page, Community Support Print Language: Djiboutian Care Plan Goals: Maintain mood and safe behaviors Take medications as prescribed Continue to pursue sobriety Practice coping skills Continue with outpatient providers and reach out to them as needed Health Concerns: Mood stability and behaviors Sobriety Plan of Treatment: Follow up with your PCP, psychiatric provider and other outpatient providers regarding above concerns Take medications as prescribed Assessment: Patient was interviewed prior to discharge and found to be fully oriented and without SI or HI. Patient has insight and demonstrates good judgment in terms of wanting to pursue treatment. Patient has a safety plan that includes presenting to the closest ER or calling 911 if feeling unsafe. Discharge Date/Time: 08/15/23 10:50
== END 2023-08-15 10:50 | disposition home or self-care (01) | DRG 751 ==
LOC: HO.ED 17:11 → HO.PADLT16 19:21
PROVIDERS: Nurse Practitioner Family; Psychiatry & Neurology Psychiatry; Admitting Provider Psychiatry & Neurology Psychiatry; Emergency Provider Emergency Medicine Emergency Medical Services; PCP Internal Medicine; Responsible Provider Registered Nurse; Visit Provider Psychiatry & Neurology Psychiatry
DX: F33.2 Major depressive disorder, recurrent severe without psychotic features (principal); R45.851 Suicidal ideations; F41.1 Generalized anxiety disorder; F90.9 Attention-deficit hyperactivity disorder, unspecified type; Z20.822 Contact with and (suspected) exposure to COVID-19; Z79.899 Other long term (current) drug therapy
CPT/HCPCS: 36415; 80053; 80061; 80307; 81001; 83036; 85025; 87635; 99285; S9485

== ENCOUNTER → 2023-08-08 18:48 | Outpatient (BNV) | payer OTHER, SELFPAY | PROVIDERS: Admitting Provider Psychiatry & Neurology Psychiatry; Emergency Provider Emergency Medicine Emergency Medical Services; PCP Internal Medicine; Visit Provider Psychiatry & Neurology Psychiatry | DX: F33.2 Major depressive disorder, recurrent severe without psychotic features (principal); F41.9 Anxiety disorder, unspecified; F90.9 Attention-deficit hyperactivity disorder, unspecified type | CPT/HCPCS: 90792; 99231; 99232; 99238 ==